=== PATIENT | female | born 1990 | race Caucasian/White ===

== ENCOUNTER 2022-01-09 09:33 | Emergency (ER) | payer SELFPAY ==
--- OUTSIDE RECORDS SUMMARY | 2022-01-09 09:39 | XMS REPORT | Continuity of Care Document ---
:1990 Author Organization [facility] t Address [address] [place] [address] Care Team Providers Name Role Phone Pcp, Patient Does Not Have A Primary Care Physician [phone] BRIJESH GORDON Attending Clinician Unavailable Brijesh Gordon DO Attending Clinician Martha Blake MA Attending Clinician Unavailable CAROL BAUMAN Attending Clinician Unavailable Carol Swann Attending Clinician Carmen BARR Attending Clinician Unavailable Carmen Goodrich Attending Clinician Doctor Unassigned, [place] Attending Clinician Unavailable ALEJO CHUN Attending Clinician Unavailable Alejo Chun MD Attending Clinician Wild Peter RN Attending Clinician Unavailable RAINE REESE Attending Clinician Unavailable Mary Ann GRAY Raine S Attending Clinician ANDRES MORGAN Attending Clinician Unavailable Only, Ang Db Test Attending Clinician Unavailable Key Rodriguez Attending Clinician KEY TRIMBLE Attending Clinician Unavailable LASHONDA VELASCO Attending Clinician Unavailable Lashonda Velasco MD Attending Clinician [phone] Audrey Serrano RN Attending Clinician Unavailable Jenna Montana LVN Attending Clinician RODRIGO XAVIER Attending Clinician Unavailable Saulo Wolf MD Attending Clinician Don Blevins MD Attending Clinician Rodrigo Xavier MD Attending Clinician BAUMANMIKEE Admitting Clinician Unavailable Carmen BARR Admitting Clinician Unavailable BRIJESH GORDON Admitting Clinician Unavailable LASHONDA VELASCO Admitting Clinician Unavailable RODRIGO XAVIER Admitting Clinician Unavailable Morenita TAVAREZ, Rodrigo Rai Admitting Clinician Payers Payer Name Policy Type Policy Number Effective Date Expiration Date [place] [id number] 2021 HEALTHCARE 00:00:00 Problems Condition Condition Condition Status Onset Resolution Last Treating Co mments Source Name Details Category Date Date Treatment Clinician Date UTI UTI Disease Active Univers (urinary (urinary 4-24 ity of tract tract 00:00: [place] infection) infection) 00 In dical Branch Allergies, Adverse Reactions, Alerts Allergy Allergy Status Severity Reaction(s) Onset Inactive Treating Comm ents Source Name Type Date Date Clinician LATEX DRUG Active Rash 2021-0 Univers INGREDI 9-02 ity of 00:00: [place] 00 Medical Branch Latex Propensi Active Rash 2021-0 Univers ty to 9-02 ity of adverse 00:00: [place] reaction 00 Medical s Branch Penicill Propensi Active Anaphylaxis 2021-0 U nivers in ty to 6-27 ity of adverse 00:00: [place] reaction 00 Medical s Branch PENICILL DRUG Active Anaphylaxis 2021-0 Uni vers IN INGREDI 6-27 ity of 00:00: [place] 00 Medical Branch FISH OIL DRUG Active Hives 2021-0 Univers INGREDI 4-24 ity of 00:00: [place] 00 Medical Branch PENICILL Drug Active Anaphylaxis 2021-0 Uni vers INS Class 4-24 ity of 00:00: [place] 00 Medical Branch Penicill Propensi Active Anaphylaxis 2021-0 U nivers ins ty to 4-24 ity of adverse 00:00: [place] reaction 00 Medical s Branch Fish Oil Propensi Active Hives 2021-0 Univer s ty to 4-24 ity of adverse 00:00: [place] reaction 00 Medical s Branch Penicill Propensi Active Anaphylaxis U nivers ins ty to 4-24 ity of adverse 00:00: [place] reaction 00 Medical s Branch Social History Social Habit Start Date Stop Date Quantity Comments Source History SDIA University o f Alcohol Frequency [place] M edical Branch History [facility] University o f Alcohol Std [place] Medical Drinks Branch History [facility] o f Alcohol Binge [place] Medic al Branch Exposure to 2021-12-16 2021-12-26 Not sure University of SARS-CoV-2 00:00:00 15:50:00 [facility] [place] [facility] (event) Branch Tobacco use and 2021-06-04 2021-06-04 Smokeless tobacco Un iversity of exposure 00:00:00 00:00:00 non-user [facility] Alcohol Comment 2021-06-04 2021-06-04 drinks 2x a year Uni versity of 00:00:00 00:00:00 [facility] Sex [birth year] Universit y of 00:00:00 00:00:00 [facility] Smoking Status Start Date Stop Date Source Tobacco smoking consumption Univ ersity of [facility] [place] [facility] unknown Branch Medications Ordered Filled Start Stop Current Ordering Indication Dosage Frequency Signature Comments Components Source Medication Medication Date Date Medication? Clinician (SIG) Name Name ketorolac 2021-02- Yes 15mg 15 mg, Unive rs (TORADOL) 03-0928 Slow IV ity of injection 20:30: 08:29 Push, [place] 15 mg 00 :00 ONCE, 1 Medical dose, On Branch 01/07/22 at 1430, Routine HYDROcodone 2021-02- No 1{tbl} 1 tablet, Univers -acetaminop 16 11-16 Oral, ONCE i ty of hen (NORCO) 02:30: 02:01 NOW, 1 [place] as 10-325 mg 00 :00 dose, On Medica l tablet 1 Tue Branch tablet 12/26/21 at 2030, Routine morpHINE (4 2021-02- No 4mg 4 mg, Slow Univers mg/mL) 02-25 11-15 IV Push, ity of injection 4 23:00: 23:04 ONCE, 1 [place] mg 00 :00 dose, On Medical Tue Branch 12/26/21 at 1700, STAT NaCl 0.9% 2021-02 No 1000mL at 999 Uni vers (NS) bolus 02-25 11-16 mL/hr, ity of infusion 22:45: 00:17 1,000 mL, [place] 1,000 mL 00 :00 IV Medical Infusion, Branch ONCE, 1 dose, On 12/26/21 at 1645, JOSE LUIS ondansetron 2021-02 No 4mg 4 mg, Slow Univers (ZOFRAN 02-25 IV Push, ity of (PF)) 22:00: 22:03 ONCE, 1 [place] injection 4 00 :00 dose, On Medi rancho mg Tue Branch 12/26/21 at 1600, JOSE LUIS ketorolac 2021-02 No 30mg 30 mg, Unive rs (TORADOL) 02-25 Slow IV ity of injection 22:00: 22:04 Push, [place] 30 mg 00 :00 ONCE, 1 Medical dose, On Branch e 12/26/21 at 1600, JOSE LUIS insulin 2021-02 No 8U 8 Units, Unive rs regular 012-03 IV Push, ity of human 04:00: 03:03 ONCE, 1 [place] (HUMULIN R) 00 :00 dose, On Medi rancho injection 8 Sat Branch Units 12/02/21 at 2300, Routine
Indicatio n for insulin: Hyperglyce angel ketorolac 2021-02 No 15mg 15 mg, Unive rs (TORADOL) 012-03 Slow IV ity of injection 03:00: 01:56 Push, [place] 15 mg 00 :00 ONCE, 1 Medical dose, On Branch 12/02/21 at 2200, JOSE LUIS NaCl 0.9% 2021-02 No 1000mL at 999 Uni vers (NS) bolus 0 10-23 mL/hr, ity of infusion 02:45: 03:39 1,000 mL, [place] 1,000 mL 00 :00 IV Medical Infusion, Branch ONCE, 1 dose, On 12/02/21 at 2145, STAT magnesium 2021-02 No 2g 2 g, IV Univ ers sulfate in 0-03 12-23 Piggyback, it y of water 2 02:45: 02:54 Administer [place] gram/50 mL 00 :00 over 60 Medica l (4 %) Minutes, Branch infusion 2 ONCE, 1 g dose, On 12/02/21 at 2145, Routine NaCl 0.9% 2021-02- No 1000mL at 999 Uni vers (NS) bolus 0-23 10-23 mL/hr, ity of infusion 02:00: 03:39 1,000 mL, [place] 1,000 mL 00 :00 IV Medical Infusion, Branch ONCE, 1 dose, On 12/02/21 at 2100, STAT ondansetron 2021-02- No 4mg 4 mg, Slow Univers (ZOFRAN 0-23 10-23 IV Push, ity of (PF)) 02:00: 01:10 ONCE, 1 [place] injection 4 00 :00 dose, On Medi rancho mg Sat Branch 12/02/21 at 2100, JOSE LUIS insulin 2021-02 Yes 30U inject 30 Unive rs glargine,hu 0-22 Units ity of m.rec.anlog 22:42: under the [place] (LANTUS SC) 34 skin 2 Medica l (two) Branch times daily. insulin 2021-02 Yes 30U inject 30 Unive rs glargine,hu 0-22 Units ity of m.rec.anlog 22:42: under the [place] (LANTUS SC) 34 skin 2 Medica l (two) Branch times daily. insulin 2021-02 Yes 30U inject 30 Unive rs glargine,hu 0-22 Units ity of m.rec.anlog 22:42: under the [place] (LANTUS SC) 34 skin 2 Medica l (two) Branch times daily. insulin 2021-02 Yes 30U inject 30 Unive rs glargine,hu 0-22 Units ity of m.rec.anlog 22:42: under the [place] (LANTUS SC) 34 skin 2 Medica l (two) Branch times daily. ondansetron 2021-02 Yes [id number] 8mg Take 1 Univers 8 mg 0-22 tablet by ity of disintegrat 00:00: mouth [place] ing tablet 00 every 8 Medica l (eight) Branch hours as needed for Nausea and Vomiting (N/V). insulin 2021-02 Yes [id number] 30U inject 30 Univers glargine 0-22 Units ity of 100 unit/mL 00:00: under the [place] injection 00 skin in Medical the Branch morning and 30 Units in the evening. ondansetron 2021-02 Yes [id number] 8mg Take 1 Univers 8 mg 0-22 tablet by ity of disintegrat 00:00: mouth [place] ing tablet 00 every 8 Medica l (eight) Branch hours as needed for Nausea and Vomiting (N/V). insulin 2021-02 Yes [id number] 30U inject 30 Univers glargine 0-22 Units ity of 100 unit/mL 00:00: under the [place] injection 00 skin in Medical the Branch morning and 30 Units in the evening. ibuprofen 2021-02 Yes [id number] 600mg Take 1 Univers 600 mg 0-22 tablet by ity of tablet 00:00: mouth [place] 00 every 6 Medical (six) Branch hours as needed for Pain (scale 4-6). ondansetron 2021-02 Yes [id number] 8mg Take 1 Univers 8 mg 0-22 tablet by ity of disintegrat 00:00: mouth [place] ing tablet 00 every 8 Medica l (eight) Branch hours as needed for Nausea and Vomiting (N/V). insulin 2021-02 Yes [id number] 30U inject 30 Univers glargine 0-22 Units ity of 100 unit/mL 00:00: under the [place] injection 00 skin in Medical the Branch morning and 30 Units in the evening. ibuprofen 2021-02 Yes [id number] 600mg Take 1 Univers 600 mg 0-22 tablet by ity of tablet 00:00: mouth [place] 00 every 6 Medical (six) Branch hours as needed for Pain (scale 4-6). ondansetron 2021-02 Yes [id number] 8mg Take 1 Univers 8 mg 0-22 tablet by ity of disintegrat 00:00: mouth [place] ing tablet 00 every 8 Medica l (eight) Branch hours as needed for Nausea and Vomiting (N/V). insulin 2021-02 Yes [id number] 30U inject 30 Univers glargine 0-22 Units ity of 100 unit/mL 00:00: under the [place] injection 00 skin in Medical the Branch morning and 30 Units in the evening. ibuprofen 2022-1 Yes [id number] 600mg Take 1 Univers 600 mg 0-22 tablet by ity of tablet 00:00: mouth [place] 00 every 6 Medical (six) Branch hours as needed for Pain (scale 4-6). clindamycin 2021- No 600mg 600 mg, IV Univers in 5 % 11-08 Piggyback, ity of dextrose 20:15: 20:14 ONCE, 1 [place] (CLEOCIN) 00 :00 dose, On Medica l 600 mg/50 Wed Branch mL IV 11/08/21 at piggyback 1515, RTU 600 mg Administer over 30 Minutes, 50 mL
R andres for Anti-Infec tive: Documented Infection< br>Documen snow Infection Site: Skin / Soft Tissue
Duration of Therapy: 7 days
Re stricted use approved by: ED PROVIDER FENTanyl PF 2021- No 50ug 50 mcg, Un edgar (SUBLIMAZE 11-08 Slow IV ity o f (PF)) 19:45: 18:54 Push, [place] injection 00 :00 ONCE, 1 Medical 50 mcg dose, On Branch 11/08/21 at 1445, Routine lidocaine 2021- No 10mL 10 mL, Unive rs 1% (PF) 11-08 Infiltrati ity o f (XYLOCAINE) 17:45: 17:45 on, ONCE, [place] injection 00 :00 1 dose, On Medi rancho 10 mL Wed Branch 11/08/21 at 1245, JOSE LUIS NaCl 0.9% 2021- No 1000mL at 999 Uni vers (NS) bolus 11-08 mL/hr, ity of infusion 17:45: 18:57 1,000 mL, [place] 1,000 mL 00 :00 IV Medical Infusion, Branch ONCE, 1 dose, On Sat11/08/21 at 1245, JOSE LUIS ondansetron 2021- No 4mg 4 mg, Slow Univers (ZOFRAN 11-08 IV Push, ity of (PF)) 17:00: 17:17 ONCE, 1 [place] injection 4 00 :00 dose, On Medi rancho mg Wed Branch 11/08/21 at 1200, JOSE LUIS morpHINE (4 2021- No 4mg 4 mg, Slow Univers mg/mL) 11-08 IV Push, ity of injection 4 17:00: 17:17 ONCE, 1 [place] mg 00 :00 dose, On Medical Wed Branch 11/08/21 at 1200, STAT ketorolac No 30mg 30 mg, Unive rs (TORADOL) 11-08 Slow IV ity of injection 17:00: 17:17 Push, [place] 30 mg 00 :00 ONCE, 1 Medical dose, On Branch Sat11/08/21 at 1200, JOSE LUIS clindamycin 2021- Yes [id number] 450mg Take 3 Univers 150 mg 11-08 capsules ity of capsule 00:00: 04:59 by mouth [place] 00 :00 in the Medical morning Branch and 3 capsules at noon and 3 capsules in the evening. Do all this for 7 days. metoclopram No 10mg 10 mg, Uni vers crispin HCl 10-17 Slow IV ity of (REGLAN) 00:30: 00:33 Push, [place] injection 00 :00 ONCE, 1 Medical 10 mg dose, On Branch 10/16/21 at 1930, JOSE LUIS NaCl 0.9% 2021- No 2000mL at 999 Uni vers (NS) bolus 10-17 mL/hr, ity of infusion 00:15: 01:00 2,000 mL, [place] 2,000 mL 00 :00 IV Medical Infusion, Branch ONCE, 1 dose, On Sat10/16/21 at 1915, STAT NaCl 0.9% No 1000mL at 999 Uni vers (NS) bolus 10-13 mL/hr, ity of infusion 19:00: 18:40 1,000 mL, [place] 1,000 mL 00 :00 IV Medical Infusion, Branch ONCE, 1 dose, On Sat10/13/21 at 1400, STAT ondansetron No 4mg 4 mg, Slow Univers (ZOFRAN 10-13 IV Push, ity of (PF)) 18:00: 17:47 ONCE, 1 [place] injection 4 00 :00 dose, On Medi rancho mg Sat10/13/21 Branch at 1300, JOSE LUIS ondansetron 2022-0 Yes [id number] 4mg Take 1 Univers 4 mg 9-02 tablet by ity of disintegrat 00:00: mouth [place] ing tablet 00 every 8 Medica l (eight) Branch hours as needed for Nausea and Vomiting (N/V). ondansetron 2022-0 Yes [id number] 4mg Take 1 Univers 4 mg 9-02 tablet by ity of disintegrat 00:00: mouth [place] ing tablet 00 every 8 Medica l (eight) Branch hours as needed for Nausea and Vomiting (N/V). ondansetron 2022-0 Yes [id number] 4mg Take 1 Univers 4 mg 9-02 tablet by ity of disintegrat 00:00: mouth [place] ing tablet 00 every 8 Medica l (eight) Branch hours as needed for Nausea and Vomiting (N/V). ondansetron 2022-0 Yes [id number] 4mg Take 1 Univers 4 mg 9-02 tablet by ity of disintegrat 00:00: mouth [place] ing tablet 00 every 8 Medica l (eight) Branch hours as needed for Nausea and Vomiting (N/V). ondansetron 2-0 Yes [id number] 4mg Take 1 Univers 4 mg 9-02 tablet by ity of disintegrat 00:00: mouth [place] ing tablet 00 every 8 Medica l (eight) Branch hours as needed for Nausea and Vomiting (N/V). ondansetron 2-0 Yes [id number] 4mg Take 1 Univers 4 mg 9-02 tablet by ity of disintegrat 00:00: mouth [place] ing tablet 00 every 8 Medica l (eight) Branch hours as needed for Nausea and Vomiting (N/V). ondansetron 2022-0 Yes [id number] 4mg Take 1 Univers 4 mg 9-02 tablet by ity of disintegrat 00:00: mouth [place] ing tablet 00 every 8 Medica l (eight) Branch hours as needed for Nausea and Vomiting (N/V). ondansetron 2022-0 Yes [id number] 4mg Take 1 Univers 4 mg 9-02 tablet by ity of disintegrat 00:00: mouth [place] ing tablet 00 every 8 Medica l (eight) Branch hours as needed for Nausea and Vomiting (N/V). ondansetron 2022-0 Yes [id number] 4mg Take 1 Univers 4 mg 9-02 tablet by ity of disintegrat 00:00: mouth [place] ing tablet 00 every 8 Medica l (eight) Branch hours as needed for Nausea and Vomiting (N/V). NaCl 0.9% No 1000mL at 999 Uni vers (NS) bolus 09-15 mL/hr, ity of infusion 13:30: 14:09 1,000 mL, [place] 1,000 mL 00 :00 IV Medical Piggyback, Branch ONCE, 1 dose, On Sat09/15/21 at 0830, STAT dexamethaso 2021- No 10mg 10 mg, Uni vers ne 09-15 Oral, ity of (DECADRON 13:15: 12:15 ONCE, 1 [place] PHOSPHATE) 00 :00 dose, On Medic al injection Sat09/15/21 Bran ch 10 mg at 0815, Routine ondansetron 2021- No 4mg 4 mg, Slow Univers (ZOFRAN 09-15 IV Push, ity of (PF)) 12:30: 12:24 ONCE, 1 [place] injection 4 00 :00 dose, On Medi rancho mg 09/15/21 Branch at 0730, JOSE LUIS ibuprofen 2021- No 600mg 600 mg, Uni vers (IBU) 09-15 Oral, ity of tablet 600 12:15: 12:15 ONCE, 1 [place] mg 00 :00 dose, On Medical 09/15/21 Branch at 0715, JOSE LUIS benzonatate 2021- No 100mg 100 mg, U nivers (TESSALON 09-15 Oral, ity of PERLES) 12:15: 12:15 ONCE, 1 [place] capsule 100 00 :00 dose, On Medi rancho mg Sat09/15/21 Branch at 0715, JOSE LUIS benzonatate 2021-0 Yes [id number] 100mg Take 1 Univers 100 mg 8-05 capsule by ity of capsule 00:00: mouth 3 [place] 00 (three) Medical times Branch daily as needed for Cough. ondansetron Yes [id number] 4mg Take 1 Univers 4 mg 8-05 tablet by ity of disintegrat 00:00: mouth [place] ing tablet 00 every 8 Medica l (eight) Branch hours as needed for Nausea and Vomiting (N/V). Blood-Gluco 2022-0 Yes [id number] Use as Univers se Meter 8-05 directed ity of (BLOOD 00:00: [place] GLUCOSE 00 Medical MONITORING) Branch Kit benzonatate 2022-0 Yes [id number] 100mg Take 1 Univers 100 mg 8-05 capsule by ity of capsule 00:00: mouth 3 [place] 00 (three) Medical times Branch daily as needed for Cough. Blood-Gluco 2022-0 Yes [id number] Use as Univers se Meter 8-05 directed ity of (BLOOD 00:00: [place] GLUCOSE 00 Medical MONITORING) Branch Kit benzonatate 2-0 Yes [id number] 100mg Take 1 Univers 100 mg 8-05 capsule by ity of capsule 00:00: mouth 3 [place] 00 (three) Medical times Branch daily as needed for Cough. Blood-Gluco 2022-0 Yes [id number] Use as Univers se Meter 8-05 directed ity of (BLOOD 00:00: [place] GLUCOSE 00 Medical MONITORING) Branch Kit benzonatate 2-0 Yes [id number] 100mg Take 1 Univers 100 mg 8-05 capsule by ity of capsule 00:00: mouth 3 (three) Medical times Branch daily as needed for Cough. Blood-Gluco 2022-0 Yes [id number] Use as Univers se Meter 8-05 directed ity of (BLOOD 00:00: [place] GLUCOSE 00 Medical MONITORING) Branch Kit benzonatate 2-0 Yes [id number] 100mg Take 1 Univers 100 mg 8-05 capsule by ity of capsule 00:00: mouth 3 (three) Medical times Branch daily as needed for Cough. Blood-Gluco 2022-0 Yes [id number] Use as Univers se Meter 8-05 directed ity of (BLOOD 00:00: [place] GLUCOSE 00 Medical MONITORING) Branch Kit benzonatate 2022-0 Yes [id number] 100mg Take 1 Univers 100 mg 8-05 capsule by ity of capsule 00:00: mouth 3 [place] 00 (three) Medical times Branch daily as needed for Cough. Blood-Gluco 2022-0 Yes [id number] Use as Univers se Meter 8-05 directed ity of (BLOOD 00:00: [place] GLUCOSE 00 Medical MONITORING) Branch Kit benzonatate 2022-0 Yes [id number] 100mg Take 1 Univers 100 mg 8-05 capsule by ity of capsule 00:00: mouth 3 (three) Medical times Branch daily as needed for Cough. Blood-Gluco 2022-0 Yes [id number] Use as Univers se Meter 8-05 directed ity of (BLOOD 00:00: [place] GLUCOSE 00 Medical MONITORING) Branch Kit benzonatate 2-0 Yes [id number] 100mg Take 1 Univers 100 mg 8-05 capsule by ity of capsule 00:00: mouth 3 (three) Medical times Branch daily as needed for Cough. Blood-Gluco 2-0 Yes [id number] Use as Univers se Meter 8-05 directed ity of (BLOOD 00:00: [place] GLUCOSE 00 Medical MONITORING) Branch Kit benzonatate 2-0 Yes [id number] 100mg Take 1 Univers 100 mg 8-05 capsule by ity of capsule 00:00: mouth 3 (three) Medical times Branch daily as needed for Cough. Blood-Gluco 2-0 Yes [id number] Use as Univers se Meter 8-05 directed ity of (BLOOD 00:00: [place] GLUCOSE 00 Medical MONITORING) Branch Kit benzonatate 2-0 Yes [id number] 100mg Take 1 Univers 100 mg 8-05 capsule by ity of capsule 00:00: mouth 3 (three) Medical times Branch daily as needed for Cough. Blood-Gluco 2-0 Yes [id number] Use as Univers se Meter 8-05 directed ity of (BLOOD 00:00: [place] GLUCOSE 00 Medical MONITORING) Branch Kit ondansetron 2-0 2022- No [id number] 4mg Take 1 Univers 4 mg 8-05 09-02 tablet by ity of disintegrat 00:00: 00:00 mouth [place] ing tablet 00 :00 every 8 Medica l (eight) Branch hours as needed for Nausea and Vomiting (N/V). ondansetron 2022-0 2022- No [id number] 4mg Take 1 Univers 4 mg 8-05 08-05 tablet by ity of disintegrat 00:00: 00:00 mouth [place] ing tablet 00 :00 every 8 Medica l (eight) Branch hours as needed for Nausea and Vomiting (N/V). benzonatate 2022-0 2022- No [id number] 100mg Take 1 Univers 100 mg 8-05 08-05 capsule by ity of capsule 00:00: 00:00 mouth 3 [place] 00 :00 (three) Medical times [place] daily as needed for Cough. QUEtiapine 2022-0 Yes TAKE 1 Unive rs 100 mg 7-12 TABLET BY ity of tablet 00:00: [facility] 00 EVERY Medical NIGHT AT Branch BEDTIME FOR MOOD QUEtiapine 2022-0 Yes TAKE 1 Unive rs 100 mg 7-12 TABLET BY ity of tablet 00:00: [facility] 00 EVERY Medical NIGHT AT Branch BEDTIME FOR MOOD QUEtiapine 2022-0 Yes TAKE 1 Unive rs 100 mg 7-12 TABLET BY ity of tablet 00:00: MOUTH [place] 00 EVERY Medical NIGHT AT Branch BEDTIME FOR MOOD QUEtiapine 2022-0 Yes TAKE 1 Unive rs 100 mg 7-12 TABLET BY ity of tablet 00:00: [facility] 00 EVERY Medical NIGHT AT Branch BEDTIME FOR MOOD QUEtiapine 2022-0 Yes TAKE 1 Unive rs 100 mg 7-12 TABLET BY ity of tablet 00:00: [facility] EVERY Medical NIGHT AT [place] BEDTIME FOR MOOD QUEtiapine 2022-0 Yes TAKE 1 Unive rs 100 mg 7-12 TABLET BY ity of tablet 00:00: [facility] 00 EVERY Medical NIGHT AT Branch BEDTIME FOR MOOD QUEtiapine 2022-0 Yes TAKE 1 Unive rs 100 mg 7-12 TABLET BY ity of tablet 00:00: [facility] 00 EVERY Medical NIGHT AT Branch BEDTIME FOR MOOD QUEtiapine 2022-0 Yes TAKE 1 Unive rs 100 mg 7-12 TABLET BY ity of tablet 00:00: [facility] EVERY Medical NIGHT AT Branch BEDTIME FOR MOOD QUEtiapine 2022-0 Yes TAKE 1 Unive rs 100 mg 7-12 TABLET BY ity of tablet 00:00: MOUTH 00 EVERY Medical NIGHT AT Branch BEDTIME FOR MOOD QUEtiapine 2022-0 Yes TAKE 1 Unive rs 100 mg 7-12 TABLET BY ity of tablet 00:00: [facility] 00 EVERY Medical NIGHT AT Branch BEDTIME FOR MOOD QUEtiapine 2022-0 Yes TAKE 1 Unive rs 100 mg 7-12 TABLET BY ity of tablet 00:00: [facility] 00 EVERY Medical NIGHT AT Branch BEDTIME FOR MOOD QUEtiapine 2022-0 Yes TAKE 1 Unive rs 100 mg 7-12 TABLET BY ity of tablet 00:00: [facility] 00 EVERY Medical NIGHT AT Branch BEDTIME FOR MOOD ibuprofen 2022-0 Yes [id number] 800mg Take 1 Univers 800 mg 6-27 tablet by ity of tablet 00:00: mouth [place] 00 every 8 Medical (eight) Branch hours as needed for Pain (scale 4-6). ibuprofen 2022-0 Yes [id number] 800mg Take 1 Univers 800 mg 6-27 tablet by ity of tablet 00:00: mouth [place] 00 every 8 Medical (eight) Branch hours as needed for Pain (scale 4-6). ibuprofen 2022-0 Yes [id number] 800mg Take 1 Univers 800 mg 6-27 tablet by ity of tablet 00:00: mouth [place] 00 every 8 Medical (eight) Branch hours as needed for Pain (scale 4-6). ibuprofen 2022-0 Yes [id number] 800mg Take 1 Univers 800 mg 6-27 tablet by ity of tablet 00:00: mouth [place] 00 every 8 Medical (eight) Branch hours as needed for Pain (scale 4-6). ibuprofen 2022-0 Yes [id number] 800mg Take 1 Univers 800 mg 6-27 tablet by ity of tablet 00:00: mouth [place] 00 every 8 Medical (eight) Branch hours as needed for Pain (scale 4-6). ibuprofen 2022-0 Yes [id number] 800mg Take 1 Univers 800 mg 6-27 tablet by ity of tablet 00:00: mouth [place] 00 every 8 Medical (eight) Branch hours as needed for Pain (scale 4-6). ibuprofen 2022-0 Yes [id number] 800mg Take 1 Univers 800 mg 6-27 tablet by ity of tablet 00:00: mouth [place] 00 every 8 Medical (eight) Branch hours as needed for Pain (scale 4-6). ibuprofen 2022-0 Yes [id number] 800mg Take 1 Univers 800 mg 6-27 tablet by ity of tablet 00:00: mouth [place] 00 every 8 Medical (eight) Branch hours as needed for Pain (scale 4-6). ibuprofen 2022-0 Yes [id number] 800mg Take 1 Univers 800 mg 6-27 tablet by ity of tablet 00:00: mouth [place] 00 every 8 Medical (eight) Branch hours as needed for Pain (scale 4-6). ibuprofen 2022-0 Yes [id number] 800mg Take 1 Univers 800 mg 6-27 tablet by ity of tablet 00:00: mouth [place] 00 every 8 Medical (eight) Branch hours as needed for Pain (scale 4-6). ibuprofen 202-0 Yes [id number] 800mg Take 1 Univers 800 mg 6-27 tablet by ity of tablet 00:00: mouth [place] 00 every 8 Medical (eight) Branch hours as needed for Pain (scale 4-6). ibuprofen 202-0 Yes [id number] 800mg Take 1 Univers 800 mg 6-27 tablet by ity of tablet 00:00: mouth [place] 00 every 8 Medical (eight) Branch hours as needed for Pain (scale 4-6). insulin 0 Yes inject Univers aspart 4-25 under the ity of prot/insuln 00:30: skin 3 [place] asp 14 (three) Medical (NOVOLOG times Branch MIX 70-30 daily U-100 before INSULN SC) meals. insulin 2021-0 Yes 30U inject 30 Unive rs glargine,hu 4-25 Units ity of m.rec.anlog 00:30: under the [place] (LANTUS SC) 14 skin 2 Medica l (two) Branch times daily. zolpidem 2021-0 Yes 10mg Take 10 mg Uni vers (AMBIEN) 10 4-25 by mouth ity of mg tablet 00:30: at bedtime [place] 14 as needed Medical for Branch Insomnia. insulin 2021-0 Yes inject Univers aspart 4-25 under the ity of prot/insuln 00:30: skin 3 [place] asp 14 (three) Medical (NOVOLOG times Branch MIX 70-30 daily U-100 before INSULN SC) meals. insulin 2021-0 Yes 30U inject 30 Unive rs glargine,hu 4-25 Units ity of m.rec.anlog 00:30: under the [place] (LANTUS SC) 14 skin 2 Medica l (two) Branch times daily. zolpidem 2022-0 Yes 10mg Take 10 mg Uni vers (AMBIEN) 10 4-25 by mouth ity of mg tablet 00:30: at bedtime [place] 14 as needed Medical for Branch Insomnia. insulin 2021-0 Yes inject Univers aspart 4-25 under the ity of prot/insuln 00:30: skin 3 [place] asp 14 (three) Medical (NOVOLOG times Branch MIX 70-30 daily U-100 before INSULN SC) meals. insulin 2021-0 Yes 30U inject 30 Unive rs glargine,hu 4-25 Units ity of m.rec.anlog 00:30: [place] ([place] 14 skin 2 Medica l (two) Branch times daily. zolpidem 2021-0 Yes 10mg Take 10 mg Uni vers (AMBIEN) 10 4-25 by mouth ity of mg tablet 00:30: [place] 14 [place] needed Medical for Branch Insomnia. insulin 2021-0 Yes inject Univers aspart 4-25 under the [place] of prot/insuln [place]:30[place] (three) Medical (NOVOLOG times Branch MIX 70-30 daily U-100 before INSULN SC) meals. insulin 2021-0 Yes 30U inject 30 Unive rs glargine,hu 4-25 Units ity of m.rec.anlog 00:30: under the [place] ([place] 14 skin 2 Medica l (two) Branch times daily. zolpidem 2021-0 Yes 10mg Take 10 mg Uni vers (AMBIEN) 10 4-25 by mouth ity of mg tablet 00:30: [place] 14 as needed Medical for Branch Insomnia. insulin 2021-0 Yes inject Univers aspart 4-25 under the [place] of prot/insuln 00:30: [place] 3 [place] (three) Medical (NOVOLOG times Branch MIX 70-30 daily U-100 before INSULN SC) meals. insulin 2021-0 Yes 30U inject 30 Unive rs glargine,hu 4-25 Units ity of m.rec.anlog 00:30: under the [place] ([place] 14 skin 2 Medica l (two) Branch times daily. zolpidem 2-0 Yes 10mg Take 10 mg Uni vers (AMBIEN) 10 4-25 by mouth ity of mg tablet 00:30: [place] 14 as needed Medical for [facility] Insomnia. insulin 2021-0 Yes inject Univers aspart 4-25 under the [place] of prot/insuln 00:30: [place] 3 [place] (three) Medical (NOVOLOG times Branch MIX 70-30 daily U-100 before INSULN SC) meals. insulin 2021-0 Yes 30U inject 30 Unive rs glargine,hu 4-25 Units ity of m.rec.anlog 00:30: under the [place] ([place] 14 skin 2 Medica l (two) Branch times daily. zolpidem 2021-0 Yes 10mg Take 10 mg Uni vers (AMBIEN) 10 4-25 by mouth ity of mg tablet 00:30: [place] 14 as needed Medical for Branch Insomnia. insulin 2021-0 Yes inject Univers aspart 4-25 under the [place] of prot/insuln 00:30: [place] 3 [place] (three) Medical (NOVOLOG times Branch MIX 70-30 daily U-100 before INSULN SC) meals. insulin 2021-0 Yes 30U inject 30 Unive rs glargine,hu 4-25 Units ity of m.rec.anlog 00:30: under the [place] ([place] 14 skin 2 Medica l (two) Branch times daily. zolpidem 2021-0 Yes 10mg Take 10 mg Uni vers (AMBIEN) 10 4-25 by mouth ity of mg tablet 00:30: [place] 14 as needed Medical for Branch Insomnia. insulin 2021-0 Yes inject Univers aspart 4-25 under the it[place] of prot/insuln 00:30: skin 3 [place] (three) Medical (NOVOLOG times Branch MIX 70-30 daily U-100 before INSULN SC) meals. insulin 2021-0 Yes 30U inject 30 Unive rs glargine,hu 4-25 Units ity of m.rec.anlog 00:30: under the [place] ([place] 14 skin 2 Medica l (two) Branch times daily. zolpidem 2-0 Yes 10mg Take 10 mg Uni vers (AMBIEN) 10 4-25 by mouth ity of mg tablet 00:30: [place] 14 as needed Medical for Branch Insomnia. insulin 2021-0 Yes inject Univers aspart 4-25 under the it[place] of prot/insuln 00:30: [place] 3 [place] (three) Medical (NOVOLOG times Branch MIX 70-30 daily U-100 before INSULN SC) meals. zolpidem Yes 10mg Take 10 mg Uni vers (AMBIEN) 10 4-25 by mouth ity of mg tablet 00:30: [place]time [place] 14 as needed Medical for Branch Insomnia. insulin Yes inject Univers aspart 4-25 under the it[place] of prot/insuln 00:30: skin 3 [place] (three) Medical (NOVOLOG times Branch MIX 70-30 daily U-100 before INSULN SC) meals. zolpidem Yes 10mg Take 10 mg Uni vers (AMBIEN) 10 4-25 by mouth ity of mg tablet 00:30: [place] 14 as needed Medical for Branch Insomnia. insulin Yes inject Univers aspart 4-25 under the it[place] of prot/insuln 00:30: skin 3 [place] (three) Medical (NOVOLOG times Branch MIX 70-30 daily U-100 before INSULN SC) meals. zolpidem Yes 10mg Take 10 mg Uni vers (AMBIEN) 10 4-25 by mouth ity of mg tablet 00:30: [place]time [place] 14 as needed Medical for Branch Insomnia. insulin Yes inject Univers aspart 4-25 under the it[place] of prot/insuln 00:30: skin 3 [place] (three) Medical (NOVOLOG times Branch MIX 70-30 daily U-100 before INSULN SC) meals. zolpidem Yes 10mg Take 10 mg Uni vers (AMBIEN) 10 4-25 by mouth ity of mg tablet 00:30: [place] 14 as needed Medical for Branch Insomnia. Vital Signs Vital Name Observation Time Observation Value Comments Source Systolic blood 2022-01-07 18:18:00 129 mm[Hg] [facility] Diastolic blood 2022-01-07 18:18:00 105 mm[Hg] [facility] Heart rate 2022-01-07 18:18:00 127 /min [facility] Body temperature 2022-01-07 18:18:00 37.17 [place] [facility] Respiratory rate 2022-01-07 18:18:00 16 /min [facility] [place] [facility] Body height 2022-01-07 18:18:00 165.1 cm [facility] [place] [facility] Body weight 2022-01-07 18:18:00 84.823 kg [facility] [place] [facility] BMI 2022-01-07 18:18:00 31.12 kg/m2 [facility] [place] [facility] Oxygen saturation in 2022-01-07 18:18:00 96 /min University of Arterial blood by [place] [facility] Pulse oximetry Branch Systolic blood 2021-12-26 21:51:00 140 mm[Hg] Univer sity of pressure [place] [facility] Diastolic blood 2021-12-26 21:51:00 107 mm[Hg] Unive rsity of [facility] [place] [facility] Heart rate 2021-12-26 21:51:00 108 /min [facility] [place] [facility] Body temperature 2021-12-26 21:51:00 36.56 [place] [facility] [place] [facility] Respiratory rate 2021-12-26 21:51:00 18 /min [facility] [place] [facility] Body height 2021-12-26 21:51:00 165.1 cm [facility] [place] [facility] Body weight 2021-12-26 21:51:00 86.183 kg [facility] [place] [facility] BMI 2021-12-26 21:51:00 31.62 kg/m2 [facility] [place] [facility] Oxygen saturation in 2021-12-26 21:51:00 96 /min University of Arterial blood by [place] [facility] Pulse oximetry Branch Systolic blood 2021-12-03 03:00:00 126 mm[Hg] Univer sity of [facility] [place] [facility] Diastolic blood 2021-12-03 03:00:00 82 mm[Hg] Unive rsity of [facility] [place] [facility] Heart rate 2021-12-03 03:00:00 110 /min [facility] [place] [facility] Respiratory rate 2021-12-03 03:00:00 20 /min [facility] [place] [facility] Oxygen saturation in 2021-12-03 03:00:00 97 /min University of Arterial blood by [place] [facility] Pulse oximetry Branch Body temperature 2021-12-03 00:52:00 37.22 [place] [facility] [place] [facility] Body height 2021-12-03 00:52:00 165.1 cm [facility] [place] [facility] Body weight 2021-12-03 00:52:00 86.183 kg [facility] [place] [facility] BMI 2021-12-03 00:52:00 31.62 kg/m2 [facility] [place] [facility] Systolic blood 2021-11-08 20:00:00 138 mm[Hg] Univer sity [facility] [place] [facility] Diastolic blood 2021-11-08 20:00:00 95 mm[Hg] Unive rsity of [facility] [place] [facility] Heart rate 2021-11-08 20:00:00 96 /min [facility] [place] [facility] Body temperature 2021-11-08 20:00:00 36.39 [place] [facility] [place] [facility] Respiratory rate 2021-11-08 20:00:00 16 /min [facility] [place] [facility] Oxygen saturation in 2021-11-08 20:00:00 95 /min University of Arterial blood by [facility] Pulse oximetry Branch Body height 2021-11-08 15:54:00 165.1 cm [facility] [place] [facility] Body weight 2021-11-08 15:54:00 86.183 kg [facility] [place] [facility] BMI 2021-11-08 15:54:00 31.62 kg/m2 [facility] [place] [facility] Systolic blood 2021-10-16 23:46:35 124 mm[Hg] Univer sity [facility] [place] [facility] Diastolic blood 2021-10-16 23:46:35 97 mm[Hg] Unive rsity of [facility] [place] [facility] Heart rate 2021-10-16 23:46:35 118 /min [facility] [place] [facility] Body temperature 2021-10-16 23:46:35 36.72 [place] [facility] [place] [facility] Respiratory rate 2021-10-16 23:46:35 20 /min [facility] [place] [facility] Body height 2021-10-16 23:42:00 165.1 cm [facility] [place] [facility] Body weight 2021-10-16 23:42:00 86.183 kg [facility] [place] [facility] BMI 2021-10-16 23:42:00 31.62 kg/m2 [facility] [place] [facility] Oxygen saturation in 2021-10-16 23:42:00 98 /min University of Arterial blood by [facility] Pulse oximetry Branch Systolic blood 2021-10-13 20:00:43 135 mm[Hg] Univer sity of [facility] [place] [facility] Diastolic blood 2021-10-13 20:00:43 100 mm[Hg] Unive rsity of [facility] [place] [facility] Heart rate 2021-10-13 20:00:43 92 /min [facility] [place] [facility] Respiratory rate 2021-10-13 20:00:43 16 /min [facility] [place] [facility] Oxygen saturation in 2021-10-13 20:00:43 99 /min University of Arterial blood by [facility] Pulse oximetry Branch Body temperature 2021-10-13 17:22:00 36.72 [place] [facility] [place] [facility] Body height 2021-10-13 17:22:00 165.1 cm [facility] [place] [facility] Body weight 2021-10-13 17:22:00 86.183 kg [facility] [place] [facility] BMI 2021-10-13 17:22:00 31.62 kg/m2 [facility] [place] [facility] Systolic blood 2021-09-15 13:14:00 136 mm[Hg] Univer sity [facility] [place] [facility] Diastolic blood 2021-09-15 13:14:00 91 mm[Hg] Unive rsity of [facility] [place] [facility] Heart rate 2021-09-15 13:14:00 86 /min [facility] [place] [facility] Respiratory rate 2021-09-15 13:14:00 16 /min [facility] [place] [facility] Oxygen saturation in 2021-09-15 13:14:00 97 /min University of Arterial blood by [facility] Pulse oximetry Branch Body temperature 2021-09-15 11:48:00 36.61 [place] [facility] [place] [facility] Body height 2021-09-15 11:46:00 160 cm [facility] [place] [facility] Body weight 2021-09-15 11:46:00 90.719 kg [facility] [place] [facility] BMI 2021-09-15 11:46:00 35.43 kg/m2 [facility] [place] [facility] Systolic blood 2021-09-12 15:05:00 116 mm[Hg] Univer sity [facility] [place] [facility] Diastolic blood 2021-09-12 15:05:00 80 mm[Hg] Unive rsity of pressure [facility] Heart rate 2021-09-12 15:05:00 106 /min [facility] Body temperature 2021-09-12 15:05:00 37.11 [place] [facility] Respiratory rate 2021-09-12 15:05:00 16 /min [facility] Body height 2021-09-12 15:05:00 160 cm [facility] Body weight 2021-09-12 15:05:00 87 kg [facility] BMI 2021-09-12 15:05:00 33.98 kg/m2 [facility] Oxygen saturation in 2021-09-12 15:05:00 98 /min [facility] Arterial blood by [facility] Pulse oximetry [place] Procedures Procedure Date / Time Performed Performing Clinician [facility] e COMP. METABOLIC PANEL 2022-01-07 19:06:[address] [facility] ([id number]) [facility] URINALYSIS 2022-01-07 19:06:00 Gordon, [facility] o f [facility] RAPID INFLUENZA A/B 2022-01-07 19:06:00 GordonBrijesh mcfarland [facility] LACTIC ACID WHOLE 2022-01-07 19:06:00 Gordon, [facility] BLOOD [facility] CONSENT/REFUSAL FOR 2022-01-07 18:12:45 Doctor Unassigned, No [facility] DI[facility] AND Name Medical Branch TREATMENT CT ABDOMEN PELVIS WO 2021-12-26 22:47:51 Carol Bauman [facility] POCT TEST 2021-12-26 22:05:00 Carol Bauman [facility] COMP. METABOLIC PANEL 2021-12-26 22:01:00 Carol Bauman [facility] ([id number]) [facility] CBC WITH DIFF 2021-12-26 22:01:[address] [facility] URINALYSIS 2021-12-26 22:01:[address] [facility] CONSENT/REFUSAL FOR 2021-12-26 21:14:06 Doctor Unassigned, No [facility] DIAG[facility]IS AND Name Medical Branch TREATMENT POCT GLUCOSE 2021-12-03 03:36:00 Carmen Barr [facility] (AUTOMATED) Medical Branch POCT GLUCOSE(AGE 2021-12-03 02:59:00 Carmen Barr [facility] >30DAYS) Medical Branch POCT GLUCOSE 2021-12-03 02:58:00 Carmen Barr [facility] (AUTOMATED) [facility] XR CHEST 1 VW 2021-12-03 02:10:00 Carmen Barr [facility] D-DIMER 2021-12-03 01:49:00 Carmen Barr [facility] AC PANEL 21 + LACTIC 2021-12-03 01:06:00 Carmen Barr [facility] ACID Medical Branch LIPASE 2021-12-03 01:04:00 Carmen Barr [facility] MAGNESIUM 2021-12-03 01:04:00 Carmen Barr [facility] TROPONIN I 2021-12-03 01:04:00 Carmen Barr [facility] COMP. METABOLIC PANEL 2021-12-03 01:04:[address] [facility] ([id number]) Medical Branch CBC WITH DIFF 2021-12-03 01:04:00 Carmen Barr [facility] URINALYSIS 2021-12-03 01:04:00 Carmen Brar [facility] POCT GLUCOSE(AGE 2021-12-03 01:03:00 Carmen Barr [facility] >30DAYS) Medical Branch POCT GLUCOSE 2021-12-03 01:00:00 Carmen Barr [facility] (AUTOMATED) [facility] CONSENT/REFUSAL FOR 2021-12-03 00:38:22 Doctor [facility], [facility] Name Medical Branch TREATMENT COMP. METABOLIC PANEL 2021-11-08 19:42:00 Carol Bauman [facility] ([id number]) Medical Branch CBC WITH DIFF 2021-11-08 17:14:00 [facility] URINALYSIS 2021-11-08 17:14:[address] [facility] POCT TEST 2021-11-08 17:13:00 Carol Bauman [facility] CONSENT/REFUSAL FOR 2021-11-08 15:40:23 Doctor Unassigned, No [facility] DIAGNOSIS AND Name [facility] TREATMENT COVID-19 (ID NOW RAPID 2021-10-17 00:21:00 Alejo Chun [facility] TESTING) Medical Branch POCT TEST 2021-10-17 00:17:00 Alejo Chun [facility] LIPASE 2021-10-17 00:13:00 Alejo Chun [facility] HEPATIC FUNCTION PANEL 2021-10-17 00:13:00 Alejo Chun [facility] ([id number]) Medical [place] (ALB,T.PRO,BILI T,BU/BC,ALT,AST,ALK PHOS) BASIC METABOLIC PANEL 2021-10-17 00:13:00 Alejo Chun [facility] (NA, K, CL, CO2, Medical Branch GLUCOSE, BUN, CREATININE, CA) CBC WITH DIFF 2021-10-17 00:13:00 Alejo Chun [facility] URINALYSIS 2021-10-17 00:13:00 Alejo Chun [facility] NOTICE OF PRIVACY 2021-10-16 23:40:19 Doctor Unassigned, No [facility] PRACTICES [facility] CONSENT/REFUSAL FOR 2021-10-16 23:38:52 Doctor Unassigned, No Un [facility] DIAGNOSIS AND Name [facility] TREATMENT URINALYSIS 2021-10-13 18:40:00 Raine Reese [facility] COMP. METABOLIC PANEL 2021-10-13 17:48:[address] [facility] ([id number]) Medical Branch CBC WITH DIFF 2021-10-13 17:48:00 Raine Reese [facility] POCT GLUCOSE 2021-10-13 17:37:00 Raine Reese [facility] (AUTOMATED) [facility] CONSENT/REFUSAL FOR 2021-10-13 17:16:22 Doctor Unassigned, No [facility] DIAGNOSIS AND Name Medical Branch TREATMENT VBG+VCOOX+NA+K+GLU+CA2 2021-09-15 12:39:00 Brijesh Gordon [facility] + [facility] URINALYSIS 2021-09-15 12:36:00 Singer [facility] RAPID STREP SCREEN FOR 2021-09-15 12:31:00 Singer Brijesh [facility] GROUP A [facility] RAPID INFLUENZA A/B 2021-09-15 12:31:00 Brijesh Gordon [facility] COVID-19 (ID NOW RAPID 2021-09-15 12:31:00 Singer Brijesh [facility] TESTING) Medical [place] COMP. METABOLIC PANEL 2021-09-15 12:27:00 Singer [facility] ([id number]) [facility] CBC WITH DIFF 2021-09-15 12:27:00 Singer [facility] POCT GLUCOSE 2021-09-15 11:54:00 Doctor Unassigned, No [facility] (AUTOMATED) Name [facility] CONSENT/REFUSAL FOR 2021-09-15 11:41:54 Doctor Unassigned, No [facility] DIAGNOSIS AND Name [facility] TREATMENT POCT SARS-COV-2 2021-09-12 15:17:00 Key Trimble [facility] ANTIGEN (BINAX NOW) Medical Bran ch Encounters Start End Encounter Admission Attending Care Care Encounter Source Date/Time Date/Time Type Type Clinicians Facility Department ID 2022-01-07 2022-01-07 Emergency X SINGER [facility] ERT [id number] Univers 12:21:00 14:08:00 BRIJESH gardner [facility] 2022-01-07 2022-01-07 Emergency Singer [facility] [id number] Univers 12:21:00 14:08:00 Brijesh FULLER [id number] i [facility] [id number] [facility] [id number] [address] 2022-01-01 2022-01-01 Telephone Blake, PAM [id number] Univers 00:00:00 00:00:00 Martha BRANHAM [id number] i ty [id number] [id number] [address] 2021-12-26 2021-12-26 Emergency X BAUMAN, [facility] ERT [id number] Univers 15:49:00 21:17:00 CAROL y [facility] 2021-12-26 2021-12-26 Emergency Bauman, [facility] [id number] Univers 15:49:00 21:17:00 Carol FULLER [id number] i ty [facility] [id number] [id number] [address] 2021-12-02 2021-12-02 Emergency X CORTNEY, K [facility] ERT [id number] Univers 19:43:00 22:54:00 ity [facility] 2021-12-02 2021-12-02 Emergency Cortney, K [facility] [id number] Univers 19:43:00 22:54:00 Vicki FULLER [id number] i ty of [facility] [id number] [id number] [address] 2021-11-08 2021-11-08 Emergency Bauman, [facility] [id number] Univers 10:57:00 15:20:00 Carol HERNANDEZBENITO [id number] i ty of [facility] [id number] [id number] [address] 2021-11-08 2021-11-08 Emergency X BAUMAN, [facility] ERT [id number] Univers 10:57:00 15:20:00 CAROL [facility] 2021-11-08 2021-11-08 Orders Doctor WARNER [id number] Univers 00:00:00 00:00:00 Only Unassigned, CASEY [id number] ity of [place] [facility] [id number] [place] as [id number] [facility] 009 Branch 2021-10-16 2021-10-16 Emergency X [facility] ERT [id number] Univers 18:43:00 20:01:00 ALEJO gardner [facility] 2021-10-16 2021-10-16 Emergency [facility] [id number] Univers 18:43:00 20:01:00 MigeulCecelia FULLER [id number] i ty of [place] [id number] [facility] [id number] [address] 2021-10-16 2021-10-16 ALANA Mittal [id number] Univers 00:00:00 00:00:00 (Out) Wild PEÑA 350.1.13.10 it y of [facility] [id number] [place] [id number] [facility] 019 [place] 2021-10-13 2021-10-13 Emergency X [facility] ERT [id number] Univers 12:24:00 15:04:00 RAINE gardner [facility] 2021-10-13 2021-10-13 Emergency [facility] [id number] Univers 12:24:00 15:04:00 Raine FULLER 350.1.13.10 i ty of [place] [id number] [facility] [id number] [address] 2021-09-25 2021-09-25 Outpatient R CATHY [facility] [id number] Univers 15:00:00 15:00:00 ANDRES pulidobill [facility] 2021-09-15 2021-09-15 Emergency [facility]RT [id number] Univers 06:56:00 09:12:00 BRIJESH gardner [facility] 2021-09-15 2021-09-15 [facility] [id number] Univers 06:56:00 09:12:00 Brijesh FULLER 350.1.13.10 i ty [id number] [id number] [facility] 084 [place] 2021-09-13 2021-09-13 Letter Only, Erasmo [facility] [id number] Univers 00:00:00 00:00:00 (Out) Db Test HEALTH 350.1.13.10 it y of [facility] [id number] [place] MARIE?BLEA [id number] [address] MEDICAL OFFICE [facility] 2021-09-12 2021-09-12 Urgent [facility] [id number] Univers 10:20:00 10:39:27 Care Key HEALTH 350.1.13.10 it y of [place] [id number] [place] MARIE?BLEA [id number] [address] OFFICE [facility] 2021-09-12 2021-09-12 Outpatient R NAI [facility] [id number] Univers 10:20:00 10:39:27 KEY ity [facility] 2021-09-12 2021-09-12 [facility] [id number] Univers 10:20:00 10:20:00 KEY ity [facility] 2021-09-12 2021-09-12 Orders Doctor WARNER [id number] Univers 00:00:00 00:00:00 Only Unassigned, CASEY 350.1.13.10 ity of [place] [facility] 4.2.7.2.686 [place] as [id number] [facility] 009 Branch 2021-09-01 2021-09-01 Emergency X AUFDERHEIDE [facility] ERT [id number] Univers 20:11:00 22:44:00 , LASHONDA ity [facility] 2021-09-01 2021-09-01 [facility] [id number] Univers 20:11:00 22:44:00 , Lashonda FULLER 350.1.13.10 i ty of [place] [id number] [facility] 084 Branch 2021-07-17 2021-07-17 Nurse ALANA Serrano [id number] Univers 00:00:00 00:00:00 Triage Audrey PEÑA 350.1.13.10 it y of [facility] [id number] [place] [id number] [facility] 019 Branch 2021-06-06 2021-06-06 Transition PAM [place] [id number] Univers 00:00:00 00:00:00 of Care Jenna BRANHAM 350.1.13.10 ity [facility] [id number] [facility] [id number] [facility] 403 Branch 2021-06-04 2021-06-04 Outpatient X MORENITAFORMERLY [facility] [id number] Univers 07:20:00 20:17:00 RODRIGO ity [facility] 2021-06-04 2021-06-04 [facility] Luciano Saulo SLOANNIE [id number] Univers 07:20:00 20:17:00 Encounter Felicity Donjonathan PEÑ[place] 350.1.13. 10 ity of [facility] 4.2.7.2.68 6 [place] [phone] [facility] 095 [place] Results Test Description Test Time Test Comments Results Result Comments Source COMP. METABOLIC PANEL (36182) 2022-01-07 19:33:08 Test Item Value Reference Range Interpretation Comme nts NA (test code = 7149676090) 132 mmol/L 135-145 L K (test code = 3671253781) 4.7 mmol/L 3.5-5.0 CL (test code = 8473005177) 102 mmol/L 98-108 CO2 TOTAL (test code = 4205187223) 16 mmol/L 23-31 L AGAP (test code = 2505550174) 2-16 BUN (test code = 3635546069) 9 mg/dL 7-23 GLUCOSE (test code = 5757692954) 332 mg/dL 70-110 H CREATININE (test code = 0.68 mg/dL 0.50-1.04 2483794408) TOTAL BILI (test code = 0.7 mg/dL 0.1-1.3 1570529977) CALCIUM (test code = 9929745086) 8.7 mg/dL 8.6-10.6 T PROTEIN (test code = 5226615933) 7.1 g/dL 6.3-8.2 ALBUMIN (test code = 6887455180) 3.8 g/dL 3.5-5.0 ALK PHOS (test code = 0838807521) 97 U/L 34-122 ALTv (test code = 1742-6) 24 U/L 5-35 AST(SGOT) (test code = 3215969103) 22 U/L 13-40 eGFR (test code = 8729115541) mL/min/1.73m2 ANTOINE (test code = ANTOINE) Association of Glomerular Filtration Rate (GFR) and Staging of Kidney Disease* + +-------- + ------+| GFR (mL/min/1.73 m2) ?| With Kidney Damage ?| ?Without Kidney Damage+ +-- + +| ?>90 ?| ?Stage one ?| ? Normal ?+ +------- + -------+| ?60-89 ?| ?Stage two ?| ? Decreased GFR ? + +-------- + ------+| ?30-59 ?| ?Stage three ?| ? Stage three ? + +-------- + ------+| ?15-29 ?| ?Stage four ? | ? Stage four ?+ +------- + -------+| ?<15 (or dialysis) ? ?| ?Stage five ? | ? Stage five ?+ +------- + -------+ *Each stage assumes the associated GFR level has been in effect for at least three months. ?Stages 1 to 5, with or without kidney disease, indicate chronic kidney disease. Notes: Determination of stages one and two (with eGFR >59mL/min/1.73 m2) requires estimation of kidney damage for at least three months as defined by structural or functional abnormalities of the kidney, manifested by either:Pathological abnormalities or Markers of kidney damage (including abnormalities in the composition of the blood or urine or abnormalities in imaging tests). Lab Interpretation (test code = Abnormal 79958-5) [facility] [id number] 19:29:08 Test Item Value Reference Range Interpretation Comments LACTIC ACID (test code = 3.00 mmol/L 0.50-2.20 H 9861518956) Lab Interpretation (test code = Abnormal 35712-9) [facility] WITH [id number] 00:28:02 Test Item Value Reference Range Interpretation Comments WBC (test code = See_Comment H [Automated 6690-2) message] The sy stem which generated this result transmitted reference range : 4.30 - 11.10 10*3/?L. The reference range was not used to interpret this result as normal/abnormal . RBC (test code = See_Comment H [Automated 789-8) message] The sy stem which generated this result transmitted reference range : 3.93 - 5.25 10*6/?L. The reference range was not used to interpret this result as normal/abnormal . HGB (test code = 19.1 g/dL 11.6-15.0 H 718-7) HCT (test code = 53.5 % 35.7-45.2 H 4544-3) MCV (test code = 85.5 fL 80.6-95.5 787-2) MCH (test code = 30.5 pg 25.9-32.8 785-6) MCHC (test code = 35.7 g/dL 31.6-35.1 H 786-4) RDW-SD (test code = 40.3 fL 39.0-49.9 87018-2) RDW-CV (test code = 13.1 % 12.0-15.5 788-0) PLT (test code = See_Comment [Automated 777-3) message] The sy stem which generated this result transmitted reference range : 166 - 358 10*3/ ?L. The reference r shayla was not used to interpret this result as normal/abnormal . MPV (test code = 10.6 fL 9.5-12.9 76887-8) IPF % (test code = 1.5 % 1.3-7.7 Platelet count 4769827749) measured by fluorescence method. NRBC/100 WBC (test See_Comment [Automat ed code = 2906081144) message] The system which generated this result transmitted reference range : 0.0 - 10.0 /100 WBCs. The refer ence range was not u sed to interpret th is result as normal/abnormal . NRBC x10^3 (test code See_Comment [Auto mated = 3314860946) message] The s ystem which generated this result transmitted reference range : 10*3/?L. The reference range was not used to interpret this result as normal/abnormal . GRAN MAT (NEUT) % 69.5 % (test code = 770-8) IMM GRAN % (test code 0.90 % = 3399972743) LYMPH % (test code = 20.0 % 736-9) MONO % (test code = 5.0 % 5905-5) EOS % (test code = 3.9 % 713-8) BASO % (test code = 0.7 % 706-2) GRAN MAT x10^3(ANC) 8.40 10*3/uL 1.88-7.09 H (test code = 7054585195) IMM GRAN x10^3 (test 0.11 10*3/uL 0.00-0.06 H code = 3476611947) LYMPH x10^3 (test code 2.42 10*3/uL 1.32-3.29 = 731-0) MONO x10^3 (test code 0.60 10*3/uL 0.33-0.92 = 742-7) EOS x10^3 (test code = 0.47 10*3/uL 0.03-0.39 H 711-2) BASO x10^3 (test code 0.09 10*3/uL 0.01-0.07 H = 704-7) Lab Interpretation Abnormal (test code = 62545-9) [facility]OL[facility] (74472)2021-12-26 22:45:51 Test Item Value Reference Range Interpretation Comments NA (test code = 131 mmol/L 135-145 L 7443180779) K (test code = 4.4 mmol/L 3.5-5.0 2171150999) CL (test code = 101 mmol/L 98-108 6774775937) CO2 TOTAL (test code = 17 mmol/L 23-31 L 8878535211) AGAP (test code = 2-16 5339625809) BUN (test code = 7 mg/dL 7-23 6135984625) GLUCOSE (test code = 292 mg/dL 70-110 H 9498349745) CREATININE (test code = 0.62 mg/dL 0.50-1.04 4440422010) TOTAL BILI (test code = 0.6 mg/dL 0.1-1.7 4974266123) CALCIUM (test code = 8.7 mg/dL 8.6-10.6 8407553110) T PROTEIN (test code = 7.3 g/dL 6.3-8.2 8742119652) ALBUMIN (test code = 3.9 g/dL 3.5-5.0 5312750784) ALK PHOS (test code = 97 U/L 34-122 2530006185) ALTv (test code = 28 U/L 5-35 1742-6) AST(SGOT) (test code = 27 U/L 13-40 0503766766) eGFR (test code = mL/min/1.73m2 3143218079) ANTOINE (test code = ANTOINE) Association of Glomerular Filtration Rate (GFR) and Staging of Kidney Disease* + --+ --+ ------+| GFR (mL/min/1.73 m2) ?| With Kidney Damage ?| ?Without Kidney Damage+ --------+ --------+ +| ?>90 ?| ?Stage one ?| ? Normal ?+ ---+ ---+ -------+| ?60-89 ?| ?Stage two ?| ? Decreased GFR ? + --+ --+ ------+| ?30-59 ?| ?Stage three ?| ? Stage three ? + --+ --+ ------+| ?15-29 ?| ?Stage four ? | ? Stage four ?+ ---+ ---+ -------+| ?<15 (or dialysis) ? ?| ?Stage five ? | ? Stage five ?+ ---+ ---+ -------+ *Each stage assumes the associated GFR level has been in effect for at least three months. ?Stages 1 to 5, with or without kidney disease, indicate chronic kidney disease. Notes: Determination of stages one and two (with eGFR >59mL/min/1.73 m2) requires estimation of kidney damage for at least three months as defined by structural or functional abnormalities of the kidney, manifested by either:Pathological abnormalities or Markers of kidney damage (including abnormalities in the composition of the blood or urine or abnormalities in imaging tests). Lab Interpretation Abnormal (test code = 62502-3) [facility] [id number] 22:05:00 Test Item Value Reference Range Interpretation Comments POCT PREG (test code = 1605) negative On board controls acceptable with present C Line (test code = 3574) POCT PREG LOT # (test code = 3575) [id number] POCT PREG TEST DATE (test 04/10/22 code = 3576) Lab Interpretation (test code = Normal 35175-7) [facility] GLUCOSE (AUTOMATED)2021-12-03 03:40:11 Test Item Value Reference Range Interpretation Comments POCT GLU (test code = 7471530933) 250 mg/dL 70-110 H Lab Interpretation (test code = Abnormal 91097-4) [facility]D-[id number] 03:24:04 Test Item Value Reference Interpretation Comments Range D-DIMER (test code = See_Comment [Autom ated 2028259233) message] The system which generated this result transmitted reference range : <0.41 ?g/mL (FEU). The reference range was not used to interpret this result as normal/abnormal . ANTOINE (test code = This test may be ANTOINE) used in conjunction with a clinical pretest probability (PTP) assessment model to exclude venous thromboembolism (VTE) in patients suspected of deep venous thrombosis (DVT) and pulmonary embolism (PE) A D-Dimer value less than 0.50 ?g/ml (FEU) has a negative predicative value of 96 to 100% (95% CI)and 97 to 100% (95% CI) as an aid in the diagnosis of deep vein thrombosis (DVT) and pulmonary embolism when there is low or moderate pretest probability of PE or DVT. D-Dimer values are expressed in initial fibrinogen equivalent units (FEU)" The assay results should be used with other information, including the clinical context, in forming a diagnosis. Lab Interpretation Normal (test code = 07319-1) [facility] GLUCOSE (AUTOMATED)2021-12-03 03:03:40 Test Item Value Reference Range Interpretation Comments POCT GLU (test code = 3276831750) 414 mg/dL 70-110 H Lab Interpretation (test code = Abnormal 35716-2) [facility] >30DAYS[facility]2021-12-03 02:59:00 Test Item Value Reference Range Interpretation Comments POCT Glu (age>30days) (test code = 414 mg/dL 70-110 A 3342) Lab Interpretation (test code = Abnormal 68698-4) [facility] CenterTROP[facility] [id number] 01:49:20 Test Item Value Reference Interpretation Comments Range TROPONIN I (test 0.003 ng/mL See_Comment [Automated code = 5290874591) message] The system which generated this result transmitted reference range : <=0.034. The reference range was not used to interpret this result as normal/abnormal . ANTOINE (test code = Reference (Normal) ANTOINE) Range (defined by the 99th percentile reference limit): <= 0.034 ng/mL Note: Cardiac troponin begins to rise 3-4 hours after the onset of ischemia. Repeat in 4-6 hours if the sample was drawn within 3-4 hours of the onset of the symptom and found normal. Diagnosis of myocardial injury is made with acute changes in cTn concentrations with at least one serial sample above the 99th percentile upper reference limit (URL), taken together with the patient's clinical presentation. Biotin has been reported to cause a negative bias, interpret results relative to patient's use of biotin. Lab Interpretation Normal (test code = 47232-4) [facility]. METABOLIC PANEL (80387)2021-12-03 01:48:59 Test Item Value Reference Range Interpretation Comments NA (test code = 131 mmol/L 135-145 L 1226429113) K (test code = 4.9 mmol/L 3.5-5 9824299345) CL (test code = 97 mmol/L 98-108 L 9499829988) CO2 TOTAL (test code = 16 mmol/L 23-31 L 3965890044) AGAP (test code = 2-16 H 9924977574) BUN (test code = 8 mg/dL 7-23 4982855394) GLUCOSE (test code = 474 mg/dL 70-110 HH 4459569118) CREATININE (test code = 0.63 mg/dL 0.5-1.04 3862038083) TOTAL BILI (test code = 1.1 mg/dL 0.1-1.5 4943308122) CALCIUM (test code = 9.5 mg/dL 8.6-10.6 2951714976) T PROTEIN (test code = 7.6 g/dL 6.3-8.2 3452267864) ALBUMIN (test code = 4.2 g/dL 3.5-5 5664386591) ALK PHOS (test code = 100 U/L 34-122 4710362955) ALTv (test code = 20 U/L 5-35 1742-6) AST(SGOT) (test code = 26 U/L 13-40 1976213574) eGFR (test code = mL/min/1.73m2 8642882194) ANTOINE (test code = ANTOINE) Association of Glomerular Filtration Rate (GFR) and Staging of Kidney Disease* + --+ --+ ------+| GFR (mL/min/1.73 m2) ?| With Kidney Damage ?| ?Without Kidney Damage+ --------+ --------+ +| ?>90 ?| ?Stage one ?| ? Normal ?+ ---+ ---+ -------+| ?60-89 ?| ?Stage two ?| ? Decreased GFR ? + --+ --+ ------+| ?30-59 ?| ?Stage three ?| ? Stage three ? + --+ --+ ------+| ?15-29 ?| ?Stage four ? | ? Stage four ?+ ---+ ---+ -------+| ?<15 (or dialysis) ? ?| ?Stage five ? | ? Stage five ?+ ---+ ---+ -------+ *Each stage assumes the associated GFR level has been in effect for at least three months. ?Stages 1 to 5, with or without kidney disease, indicate chronic kidney disease. Notes: Determination of stages one and two (with eGFR >59mL/min/1.73 m2) requires estimation of kidney damage for at least three months as defined by structural or functional abnormalities of the kidney, manifested by either:Pathological abnormalities or Markers of kidney damage (including abnormalities in the composition of the blood or urine or abnormalities in imaging tests). Lab Interpretation Abnormal (test code = 01679-6) [facility] 01:38:21 Test Item Value Reference Range Interpretation Comments MAGNESIUM (test code = 5295454248) 1.5 mg/dL 1.7-2.4 L Lab Interpretation (test code = Abnormal 10261-5) [facility] 01:38:01 Test Item Value Reference Range Interpretation Comments LIPASE (test code = 4533210428) 169 U/L 0-220 Lab Interpretation (test code = Normal 00537-0) [facility] WITH [id number] 01:26:23 Test Item Value Reference Range Interpretation Comments WBC (test code = See_Comment H [Automated 6524-2) message] The system which generated this result transmit snow reference range : 4.30 - 11.10 10*3/?L. The reference range was not used to interpret this result as normal/abnormal . RBC (test code = See_Comment [Automated 042-8) message] The system which generated this result transmit snow reference range : 3.93 - 5.25 10*6/?L. The reference range was not used to interpret this result as normal/abnormal . HGB (test code = 13.1 g/dL 11.6-15 718-7) HCT (test code = 35.8 % 35.7-45.2 4544-3) MCV (test code = 86.5 fL 80.6-95.5 787-2) MCH (test code = 31.6 pg 25.9-32.8 785-6) MCHC (test code = 36.6 g/dL 31.6-35.1 H 786-4) RDW-SD (test code = 39.4 fL 39-49.9 30865-3) RDW-CV (test code = 12.6 % 12-15.5 788-0) PLT (test code = See_Comment [Automated 777-3) message] The system which generated this result transmit snow reference range : 166 - 358 10*3/ ?L. The reference range was not u sed to interpret th is result as normal/abnormal . MPV (test code = 10.7 fL 9.5-12.9 18074-6) NRBC/100 WBC (test See_Comment [Automat ed code = 8789049146) message] The system which generated this result transmit snow reference range : 0.0 - 10.0 /100 WBCs. The reference range was not used to interpret this result as normal/abnormal . NRBC x10^3 (test code See_Comment [Auto mated = 9558142420) message] The system which generated this result transmit snow reference range : 10*3/?L. The reference range was not used to interpret this result as normal/abnormal . GRAN MAT (NEUT) % 71.2 % (test code = 770-8) IMM GRAN % (test code 0.40 % = 8142103228) LYMPH % (test code = 18.0 % 736-9) MONO % (test code = 7.7 % 5905-5) EOS % (test code = 2.1 % 713-8) BASO % (test code = 0.6 % 706-2) GRAN MAT x10^3(ANC) 11.44 10*3/uL 1.88-7.09 H (test code = 7788076393) IMM GRAN x10^3 (test 0.07 10*3/uL 0-0.06 H code = 6673921001) LYMPH x10^3 (test code 2.90 10*3/uL 1.32-3.29 = 731-0) MONO x10^3 (test code 1.24 10*3/uL 0.33-0.92 H = 742-7) EOS x10^3 (test code = 0.33 10*3/uL 0.03-0.39 711-2) BASO x10^3 (test code 0.09 10*3/uL 0.01-0.07 H = 704-7) Lab Interpretation Abnormal (test code = 47221-4) [facility] GLUCOSE (AUTOMATED)2021-12-03 01:03:21 Test Item Value Reference Range Interpretation Comments POCT GLU (test code = 8257506623) 471 mg/dL 70-110 HH Lab Interpretation (test code = Abnormal 44385-9) [facility] GLUCOSE(AGE >30DAYS)2021-12-03 01:03:00 Test Item Value Reference Range Interpretation Comments POCT Glu (age>30days) (test code = 471 mg/dL 70-110 A 3342) Lab Interpretation (test code = Abnormal 43045-9) [facility]PO[facility] [id number] 17:13:00 Test Item Value Reference Range Interpretation Comments POCT PREG (test code = 1605) negative On board controls acceptable with yes C Line (test code = 3574) POCT PREG LOT # (test code = 3575) [id number] POCT PREG TEST DATE (test 02/10/2023 code = 3576) Lab Interpretation (test code = Normal 21253-9) [facility] METABOLIC PANEL (NA, K, CL, CO2, GLUCOSE, BUN, CREATININE, CA)2021-10-17 00:39:32 Test Item Value Reference Range Interpretation Comments NA (test code = 133 mmol/L 135-145 L 0050075702) K (test code = 3.8 mmol/L 3.5-5 9921550754) CL (test code = 104 mmol/L 98-108 0542318217) CO2 TOTAL (test code = 18 mmol/L 23-31 L 0398052631) AGAP (test code = 2-16 3310005713) BUN (test code = 10 mg/dL 7-23 9854594605) GLUCOSE (test code = 231 mg/dL 70-110 H 7213875525) CREATININE (test code = 0.61 mg/dL 0.5-1.04 4235013839) CALCIUM (test code = 8.7 mg/dL 8.6-10.6 2592825313) eGFR (test code = mL/min/1.73m2 2112403386) ANTOINE (test code = ANTOINE) Association of Glomerular Filtration Rate (GFR) and Staging of Kidney Disease* + --+ --+ ------+| GFR (mL/min/1.73 m2) ?| With Kidney Damage ?| ?Without Kidney Damage+ --------+ --------+ +| ?>90 ?| ?Stage one ?| ? Normal ?+ ---+ ---+ -------+| ?60-89 ?| ?Stage two ?| ? Decreased GFR ? + --+ --+ ------+| ?30-59 ?| ?Stage three ?| ? Stage three ? + --+ --+ ------+| ?15-29 ?| ?Stage four ? | ? Stage four ?+ ---+ ---+ -------+| ?<15 (or dialysis) ? ?| ?Stage five ? | ? Stage five ?+ ---+ ---+ -------+ *Each stage assumes the associated GFR level has been in effect for at least three months. ?Stages 1 to 5, with or without kidney disease, indicate chronic kidney disease. Notes: Determination of stages one and two (with eGFR >59mL/min/1.73 m2) requires estimation of kidney damage for at least three months as defined by structural or functional abnormalities of the kidney, manifested by either:Pathological abnormalities or Markers of kidney damage (including abnormalities in the composition of the blood or urine or abnormalities in imaging tests). Lab Interpretation Abnormal (test code = 98580-0) [facility]AT[facility]34680[facility] (ALB,T.PRO,BILI T,BU/BC,ALT,AST,ALK PHOS)2021-10-17 00:39:32 Test Item Value Reference Range Interpretation Comments TOTAL BILI (test code = 9442947707) 0.6 mg/dL 0.1-1.1 BILI UNCON (test code = 2012814061) 0.4 mg/dL 0.1-1.1 BILI CONJ (test code = 4440672306) 0.0 mg/dL 0-0.3 T PROTEIN (test code = 3294849889) 6.8 g/dL 6.3-8.2 ALBUMIN (test code = 6270145092) 4.3 g/dL 3.5-5 ALK PHOS (test code = 0784800083) 78 U/L 34-122 ALTv (test code = 1742-6) 22 U/L 5-35 AST(SGOT) (test code = 0156459167) 25 U/L 13-40 Lab Interpretation (test code = Normal 33129-7) [facility] 00:39:32 Test Item Value Reference Range Interpretation Comments LIPASE (test code = 4236685818) 97 U/L 0-220 Lab Interpretation (test code = Normal 45079-7) [facility]CBC WITH [id number] 00:28:09 Test Item Value Reference Range Interpretation Comments WBC (test code = See_Comment [Automated 6690-2) message] The sy stem which generated this result transmitted reference range : 4.30 - 11.10 10*3/?L. The reference range was not used to interpret this result as normal/abnormal . RBC (test code = See_Comment [Automated 789-8) message] The sy stem which generated this result transmitted reference range : 3.93 - 5.25 10*6/?L. The reference range was not used to interpret this result as normal/abnormal . HGB (test code = 13.6 g/dL 11.6-15 718-7) HCT (test code = 37.7 % 35.7-45.2 4544-3) MCV (test code = 86.3 fL 80.6-95.5 787-2) MCH (test code = 31.1 pg 25.9-32.8 785-6) MCHC (test code = 36.1 g/dL 31.6-35.1 H 786-4) RDW-SD (test code = 39.2 fL 39-49.9 30513-7) RDW-CV (test code = 12.5 % 12-15.5 788-0) PLT (test code = See_Comment [Automated 777-3) message] The sy stem which generated this result transmitted reference range : 166 - 358 10*3/ ?L. The reference r shayla was not used to interpret this result as normal/abnormal . MPV (test code = 9.5 fL 9.5-12.9 99466-8) NRBC/100 WBC (test See_Comment [Automat ed code = 2112205026) message] The system which generated this result transmitted reference range : 0.0 - 10.0 /100 WBCs. The refer ence range was not u sed to interpret th is result as normal/abnormal . NRBC x10^3 (test code See_Comment [Auto mated = 4212759972) message] The s ystem which generated this result transmitted reference range : 10*3/?L. The reference range was not used to interpret this result as normal/abnormal . GRAN MAT (NEUT) % 56.9 % (test code = 770-8) IMM GRAN % (test code 0.40 % = 8164558628) LYMPH % (test code = 30.8 % 736-9) MONO % (test code = 7.5 % 5905-5) EOS % (test code = 4.0 % 713-8) BASO % (test code = 0.4 % 706-2) GRAN MAT x10^3(ANC) 5.49 10*3/uL 1.88-7.09 (test code = 8742672512) IMM GRAN x10^3 (test 0.04 10*3/uL 0-0.06 code = 4971014924) LYMPH x10^3 (test code 2.97 10*3/uL 1.32-3.29 = 731-0) MONO x10^3 (test code 0.72 10*3/uL 0.33-0.92 = 742-7) EOS x10^3 (test code = 0.39 10*3/uL 0.03-0.39 711-2) BASO x10^3 (test code 0.04 10*3/uL 0.01-0.07 = 704-7) Lab Interpretation Abnormal (test code = 34701-0) [facility] [id number] 00:17:00 Test Item Value Reference Range Interpretation Comments POCT PREG (test code = 1605) negative On board controls acceptable with present C Line (test code = 3574) POCT PREG LOT # (test code = 3575) [id number] POCT PREG TEST DATE (test 2023-01-10 code = 3576) Lab Interpretation (test code = Normal 40374-2) [facility] GLUCOSE (AUTOMATED)2021-10-13 17:43:45 Test Item Value Reference Range Interpretation Comments POCT GLU (test code = 6464043642) 281 mg/dL 70-110 H Lab Interpretation (test code = Abnormal 10836-8) [facility]+VCOOX+NA+K+GLU+CA2+2021-09-15 12:49:35 Test Item Value Reference Range Interpretation Comments PH (test code = 7.32-7.42 2990549852) PCO2 ETHAN (test code = See_Comment L [Auto mated message] 5769494403) The system [employer] generated this result transmit snow reference range : 41 - 51 mmHg. The reference range was not used to interpret this result as normal/abnormal . PO2 ETHAN (test code = See_Comment [Autom ated message] 0001171090) The system [employer] generated this result transmit snow reference range : 25 - 40 mmHg. The reference range was not used to interpret this result as normal/abnormal . HCO3 ETHAN (test code = See_Comment L [Auto mated message] 6098604169) The system [employer] generated this result transmit snow reference range : 24 - 28 mEq/L. The reference range was not used to interpret this result as normal/abnormal . AC VBE(BEAKER) (test mEq/L code = 5374863958) THB ETHAN (test code = 14.1 g/dL 12-16 5330367058) %O2HB ETHAN (test code = 71.1 % 52-63 H 6894122172) %COHB ETHAN (test code = 1.5 % 0-1.5 6665597296) %METHB ETHAN (test code = 0.3 % 0.4-1.5 L 0681730622) VOL%O2 ETAHN (test code = 14.1 % 6-12 H 3866082050) NA (test code = 135 mmol/L 135-145 4370484921) K+ (test code = 4.2 mmol/L 3.5-5 8887180913) AC CA IONZ (test code = 4.40 mg/dL 4.5-5.3 L 3192641013) GLUCOSE (test code = 271 mg/dL 70-110 H 6587417115) Lab Interpretation Abnormal (test code = 48465-7) [facility] GLUCOSE (AUTOMATED)2021-09-15 11:58:15 Test Item Value Reference Range Interpretation Comments POCT GLU (test code = 0569187774) 315 mg/dL 70-110 H Lab Interpretation (test code = Abnormal 96459-8) [facility] SARS-COV-2 ANTIGEN (BINAX NOW)2021-09-12 15:17:00 Test Item Value Reference Range Interpretation Comments POCT SARS-COV-2 ANTIGEN (test Not Detected Not Detected code = 5076) On board controls acceptable Yes with C Line (test code = 3574) Lab Interpretation (test code = Normal 97746-1) [facility]
[2022-01-09] MEDS ORDERED: NA CHLORIDE 0.9% 1,000 ML ONE (10:13)
[2022-01-09] MEDS ORDERED: MORPHINE 4 MG/ML SYR ONE (10:13)
[2022-01-09] MEDS ORDERED: ONDANSETRON 4 MG/2 ML VIAL ONE (10:13)
[2022-01-09 10:26] LABS: Urine Blood Negative (Negative); Urine Glucose 3+ (Negative); Urine Protein Negative (Negative); Urine pH 5.5 (5.0-7.0)
[2022-01-09 10:34] LABS: Lymphocytes % 23.8 % (15.3-44.8); MCV 87.6 fL (80-100); MPV 7.6 fL (7.6-11.3); RBC Red Blood Cell Count 4.31 M/uL (3.86-4.86); Urine RBC <5 /HPF (None Seen)
--- NOTE | 2022-01-09 10:51 | RAD REPORT ---
EXAM DESCRIPTION: CT - Stone Protocol - 01/09/2022 10:32 am CLINICAL HISTORY: right flank pain COMPARISON: No comparisons TECHNIQUE: Axial 3 mm thick images were obtained without oral or IV contrast. The mjfjl-qo-ywzr span s the entirety of the system including uppermost abdomen and lung bases. All CT scans are performed using dose optimization technique as appropriate and may include automated exposure control or mA/KV adjustment according to patient size. FINDINGS: Mild left-sided hydronephrosis is present. Left kidney is mildly edematous when compared t o the right. There is no obstructing calculus identifiable. No bladder stone is seen. There is no rig ht-sided hydronephrosis. No nonobstructing calculi present. No suspicious renal masses. Isodense mass es and pyelonephritis are not excluded on a stone protocol CT scan. No significant adrenal finding. N o urinary bladder suspicious finding. Imaged portions of the liver, spleen and pancreas show no suspicious findings on non-contrast imaging . No gallbladder or biliary tree abnormality identified. No suspicious bowel findings. Appendix is normal. No uterine or left ovarian abnormality. Right ovary is prominent but difficult to fully evaluate due to adjacent isodense on opacified small bowel. Right ovary may contain cysts. No evidence for cyst ru pture or hemorrhage. No hernia, mass or bulky lymphadenopathy noted. No free air, free fluid or inflammatory stranding. No significant bony abnormality. IMPRESSION: Mild left-sided hydronephrosis and mildly edematous left kidney without an obstructing c alculus identified. Patient may have recently passed a stone. Blood or inflammatory debris in the ureter can cause this p attern. Isodense masses and pyelonephritis are not excluded. No acute GI process identifiable. There is fullness of the right ovary possibly due to cysts. No susp icion for cyst rupture or hemorrhage. Ovarian assessment is limited.
--- NOTE | 2022-01-09 11:15 | ER ---
Nurse's Notes [facility] Name: Liliana Figueroa Age: 31 yrs Sex: Female : 1990 Arrival Date: 01/09/2022 Time: 09:35 Bed 10 Private MD: Diagnosis: Hyperglycemia, unspecified;Left flank pain;Unspecified hydronephrosis Presentation: 01/09 10:15 Chief complaint: Patient states: NV, fever, hematuria, difficulty urinating with Right vg1 flank pain x 2 weeks. Ebola Screen: Patient negative for fever greater than or equal to 101.5 degrees Fahrenheit, and additional compatible Ebola Virus Disease symptoms. Initial Sepsis Screen: Does the patient meet any 2 criteria? HR > 90 bpm. Does the patient have a suspected source of infection? No. Patient's initial sepsis screen is negative. Risk Assessment: Do you want to hurt yourself or someone else? Patient reports no desire to harm self or others. Onset of symptoms was December 26, 2021. 10:15 Method Of Arrival: Ambulatory vg1 10:15 Acuity: MARY 3 vg1 Triage Assessment: 11:30 General: Appears in no apparent distress. comfortable, Behavior is calm, cooperative, ld1 appropriate for age. GI: Abdomen is round non-distended. 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 Patient/guardian denies using alcohol. Screenin:21 Abuse screen: Denies threats or abuse. Denies injuries from another. Nutritional ld1 screening: No deficits noted. Tuberculosis screening: No symptoms or risk factors identified. Fall Risk None identified. Assessment: 10:21 Reassessment: See triage assessment. Pain: Complains of pain in low back area Pain ld1 currently is 10 out of 10 on a pain scale. Quality of pain is described as sharp, shooting, throbbing. Neuro: Level of Consciousness is awake, alert, obeys commands, Oriented to person, place, time, situation. Cardiovascular: Capillary refill < 3 seconds Patient's skin is warm and dry. Rhythm is sinus rhythm. Respiratory: Airway is patent Respiratory effort is even, unlabored. 11:30 GI: Bowel sounds present X 4 quads. ld1 Vital Signs: 10:15 BP 157 / 96; Pulse 107; Resp 18; Temp 98.3; Pulse Ox 98% ; Weight 86.18 kg; Height 5 vg1 ft. 3 in. (160.02 cm); Pain 10/10; 10:21 BP 140 / 102; Pulse 86; Resp 18; Pulse Ox 99% on R/A; Pain 10/10; ld1 10:15 Body Mass Index 33.66 (86.18 kg, 160.02 cm) vg1 ED Course: 09:35 Patient arrived in ED. rg4 09:35 Divine Cortez FNP-C [facility]. kb 09:35 Nikunj Beauchamp MD is Attending Physician. kb 10:09 Ingrid Aguilar, KEHINDE is Primary Nurse. ld1 10:17 Triage completed. vg1 10:17 Arm band placed on. vg1 10:20 Urine Microscopic Only Sent. ld1 10:21 Patient has correct armband on for positive identification. Placed in gown. Bed in low ld1 position. Call light in reach. Side rails up X2. Pulse ox on. NIBP on. Door closed. Noise minimized. Warm blanket given. 10:21 No provider procedures requiring assistance completed. Inserted saline lock: 20 gauge ld1 in right antecubital area, using aseptic technique. Blood collected. 10:34 CT Stone Protocol In Process Unspecified. EDMS 11:31 IV discontinued, intact, bleeding controlled, No redness/swelling at site. ld1 Administered Medications: 10:20 Drug: NS 0.9% 1000 ml Route: IV; Rate: 1000 ml; Site: right antecubital; ld1 10:20 Drug: Zofran (Ondansetron) 4 mg Route: IVP; Site: right antecubital; ld1 10:20 Drug: morphine 4 mg Route: IVP; Infused Over: 4 mins; Site: right antecubital; ld1 Medication: 10:21 VIS not applicable for this client. ld1 Outcome: 11:14 Discharge ordered by . kb 11:31 Discharged to home ambulatory. ld1 11:31 Condition: stable 11:31 Discharge instructions given to patient, Instructed on discharge instructions, follow up and referral plans. medication usage, Demonstrated understanding of instructions, follow-up care, medications, Prescriptions given X 2. 11:31 Patient left the ED. ld1 Signatures: Dispatcher [employer] EDMS Divine Cortez, GABINO NDIAYE-Shahla Wiley rg4 Mee Alex, RN RN vg1 Ingrid Aguilar RN RN ld1
--- NOTE | 2022-01-09 11:15 | EDPHYS ---
Physician Documentation [facility] Name: Liliana Figueroa Age: 31 yrs Sex: Female : 1990 Arrival Date: 01/09/2022 Time: 09:35 Bed 10 Private MD: ED Physician Nikunj Beauchamp HPI: 01/09 11:12 This 31 yrs old Female presents to ER via Ambulatory with complaints of Possible Kidney kb Stone. 11:12 The patient complains of pain in the left flank. The pain does not radiate. Onset: The kb symptoms/episode began/occurred 1.5 week(s) ago. Modifying factors: The symptoms are alleviated by nothing. the symptoms are aggravated by nothing. Associated signs and symptoms: Pertinent positives: hematuria, nausea. Severity of pain: At its worst the pain was moderate in the emergency department the pain is unchanged. The patient has experienced similar episodes in the past, a few times. The patient has been recently seen by a physician:. Pt reports left flank pain for 1.5 weeks. Was seen at the [facility] and given cefdinir, completed 10 day course, but pain persists. Reports difficulty urinating and intermittent hematuria as well. Pt has history of kidney stones. . FIRST HELPER: 10:17 LMP 12/12/2021 vg1 Historical: - Allergies: 10:17 No Known Allergies; vg1 - PMHx: 10:17 Diabetes mellitus; Kidney Stones; Sepsis; Tachycardia; vg1 - PSHx: 10:17 Heart Cath; Tubal ligation; vg1 - Social history:: Smoking status: Patient denies any tobacco usage or history of. Patient/guardian denies using alcohol. ROS: 11:11 Constitutional: Negative for fever, chills, and weight loss. kb 11:11 Back: Positive for flank pain, on the left. 11:11 : Positive for flank pain, hematuria, difficulty urinating. 11:11 All other systems are negative. Exam: 11:11 Constitutional: This is a well developed, well nourished patient who is awake, alert, kb and in no acute distress. Head/Face: Normocephalic, atraumatic. ENT: Moist Mucous membranes Cardiovascular: Regular rate and rhythm with a normal S1 and S2. No gallops, murmurs, or rubs. No pulse deficits. Respiratory: Respirations even and unlabored. No increased work of breathing. Talking in full sentences Abdomen/GI: Soft, non-tender. No distention Skin: Warm, dry with normal turgor. Normal color. MS/ Extremity: Pulses equal, no cyanosis. Neurovascular intact. Full, normal range of motion. Neuro: Awake and alert, GCS 15, oriented to person, place, time, and situation. Moves all extremities. Normal gait. Psych: Awake, alert, with orientation to person, place and time. Behavior, mood, and affect are within normal limits. 11:11 Back: pain, that is moderate, of the left flank, ROM is normal, normal spinal alignment noted. 11:12 Back: CVA tenderness, that is moderate, is noted on the left. kb Vital Signs: 10:15 BP 157 / 96; Pulse 107; Resp 18; Temp 98.3; Pulse Ox 98% ; Weight 86.18 kg; Height 5 vg1 ft. 3 in. (160.02 cm); Pain 10/10; 10:21 BP 140 / 102; Pulse 86; Resp 18; Pulse Ox 99% on R/A; Pain 10/10; ld1 10:15 Body Mass Index 33.66 (86.18 kg, 160.02 cm) vg1 MDM: 09:58 Patient medically screened. kb 11:12 Data reviewed: vital signs, nurses notes. Data interpreted: Pulse oximetry: on room air kb is 99 %. Interpretation: normal. Counseling: I had a detailed discussion with the patient and/or guardian regarding: the historical points, exam findings, and any diagnostic results supporting the discharge/admit diagnosis, lab results, radiology results, the need for outpatient follow up, a family practitioner, to return to the emergency department if symptoms worsen or persist or if there are any questions or concerns that arise at home. 01/09 10:02 Order name: CBC with Diff; Complete Time: 11:25 kb 01/09 10:02 Order name: Basic Metabolic Panel; Complete Time: 10:58 kb 01/09 10:02 Order name: CT Stone Protocol; Complete Time: 10:52 kb 01/09 10:02 Order name: Urine Microscopic Only; Complete Time: 10:42 kb 01/09 10:26 Order name: Urine Dipstick-Ancillary; Complete Time: 10:42 EDMS 01/09 10:27 Order name: Urine --Ancillary (enter results); Complete Time: 10:44 bd 01/09 10:02 Order name: IV Start; Complete Time: 10:20 kb 01/09 10:02 Order name: Urine Dipstick-Ancillary (obtain specimen); Complete Time: 10:20 kb Administered Medications: 10:20 Drug: NS 0.9% 1000 ml Route: IV; Rate: 1000 ml; Site: right antecubital; ld1 10:20 Drug: Zofran (Ondansetron) 4 mg Route: IVP; Site: right antecubital; ld1 10:20 Drug: morphine 4 mg Route: IVP; Infused Over: 4 mins; Site: right antecubital; ld1 Disposition: 11:41 PA/TOMOGRAPHY TECHNOLOGIST's history reviewed, patient interviewed, and examined. I agree with assessment [id number] and care plan and confirm the diagnosis (es) above. Attestation: The patient's history, exam findings, diagnostics, and a summary of any interventions or procedures was reviewed in detail with Divine LLOYD. Disposition Summary: 01/09/22 11:14 Discharge Ordered Location: Home kb Condition: Stable kb Diagnosis - Hyperglycemia, unspecified kb - Left flank pain kb - Unspecified hydronephrosis kb Followup: kb - With: Emergency Department - When: As needed - Reason: Worsening of condition Followup: kb - With: Private Physician - When: 2 - 3 days - Reason: Recheck today's complaints, Continuance of care, Re-evaluation by your physician Discharge Instructions: - Discharge Summary Sheet kb - Hydronephrosis kb - Hyperglycemia, [id number] kb - Flank Pain, Adult, [id number] kb Forms: - Medication Reconciliation Form kb - Thank You Letter kb - Antibiotic Education kb - Prescription Opioid Use kb Prescriptions: - Zofran 4 mg Oral Tablet - take 1 tablet by ORAL route every 6 hours As needed; 20 tablet; Refills: 0, kb Product Selection Permitted - Diclofenac Sodium 75 mg Oral tablet,delayed release (DR/EC) - take 1 tablet by ORAL route 2 times per day As needed; 30 tablet; Refills: 0, kb Product Selection Permitted Signatures: Dispatcher [employer] Divine Lu FNP-C FNP-Mee Wiley RN RN vg1 Ingrid Aguilar RN RN ld1 Nikunj Beauchamp MD MD [id number]
[2022-01-09 11:22] LABS: Hematocrit 39.8 % (36.0-45.0)
[2022-01-09 11:38] VITALS: TEMP 98.3
[2022-01-09 11:40] VITALS: BP 140/102; O2SAT 99
== END 2022-01-09 11:31 | disposition home or self-care (01) ==
LOC: ER 09:33
DX: N13.30 Unspecified hydronephrosis (principal); E11.65 Type 2 diabetes mellitus with hyperglycemia
CPT/HCPCS: 36415; 74176; 76377; 80048; 81003; 81015; 81025; 85025; 96374; 96375; 99284; J2405; J7030

== ENCOUNTER 2022-01-14 12:45 | Emergency (ER) | payer SELFPAY ==
--- OUTSIDE RECORDS SUMMARY | 2022-01-14 12:52 | XMS REPORT | Continuity of Care Document ---
:1990 Author Organization [facility] t Address [address] [place] [address] Care Team Providers Name Role Phone Pcp, Patient Does Not Have A Primary Care Physician [phone] ANGELIA CARVER Attending Clinician Unavailable Angelia Carver DO Attending Clinician SRINI GORDON Attending Clinician Unavailable Srini Gordon DO Attending Clinician Martha Blake MA Attending Clinician Unavailable CAROL BAUMAN Attending Clinician Unavailable Carol Swann Attending Clinician Carmen Goodrich Attending Clinician Carmen BARR Attending Clinician Unavailable Doctor Unassigned, Ten Sleep Attending Clinician Unavailable CONG CHUN Attending Clinician Unavailable Cong Chun MD Attending Clinician Wild Peter RN Attending Clinician Unavailable RAINE REESE Attending Clinician Unavailable Raine Rodriguez Attending Clinician ANDRES MORGAN Attending Clinician Unavailable Only, Ang Db Test Attending Clinician Unavailable Anastasia Rodriguez Attending Clinician ANASTASIA TRIMBLE Attending Clinician Unavailable LASHONDA LINK Attending Clinician Unavailable Rod TAVAREZ, Lashonda Juarez Attending Clinician [phone] Audrey Serrano RN Attending Clinician Unavailable Jenna Montana LVN Attending Clinician BLAYNE XAVIER Attending Clinician Unavailable Saulo Wolf MD Attending Clinician Don Blevins MD Attending Clinician Blayne Xavier MD Attending Clinician CAROL BAUMAN Admitting Clinician Unavailable Carmen BARR Admitting Clinician Unavailable SRINI GORDON Admitting Clinician Unavailable LASHONDA LINK Admitting Clinician Unavailable BLAYNE XAVIER Admitting Clinician Unavailable Blayne Xavier MD Admitting Clinician Payers Payer Name Policy Type Policy Number Effective Date Expiration Date S jacob [facility] [id number] 2021 HEALTHCARE 00:00:00 Problems Condition Condition Condition Status Onset Resolution Last Treating Co mments Source Name Details Category Date Date Treatment Clinician Date UTI UTI Disease Active Univers (urinary (urinary 4-24 ity of tract tract 00:00: [place] infection) infection) 00 Or dicar Branch Allergies, Adverse Reactions, Alerts Allergy Allergy Status Severity Reaction(s) Onset Inactive Treating Comm ents Source Name Type Date Date Clinician LATEX DRUG Active Rash 2021-0 Univers INGREDI - ity of 00:00: 00 Medical Branch Latex Propensi Active Rash 2021-0 Univers ty to 10-13 ity of adverse 00:00: [place] reaction 00 Medical s Branch Penicill Propensi Active Anaphylaxis 2021-0 U nivers in ty to 6-27 ity of adverse 00:00: [place] reaction 00 Medical s Branch PENICILL DRUG Active Anaphylaxis 2021-0 Uni vers IN INGREDI 6-27 ity of 00:00: 00 Medical Branch FISH OIL DRUG Active Hives 2021-0 Univers INGREDI 4-24 ity of 00:00: 00 Medical Branch PENICILL Drug Active Anaphylaxis 2021-0 Uni vers INS Class 4-24 ity of 00:00: 00 Medical Branch Penicill Propensi Active Anaphylaxis 2022-0 U nivers ins ty to 4-24 ity of adverse 00:00: [place] reaction 00 Medical s Branch Fish Oil Propensi Active Hives Univer s ty to 4-24 ity of adverse 00:00: [place] reaction 00 Medical s Branch Penicill Propensi Active Anaphylaxis U nivers ins ty to 4-24 ity of adverse 00:00: [place] reaction 00 Medical s Branch Social History Social Habit Start Date Stop Date Quantity Comments Source History [facility] University o f Alcohol Frequency [place] [facility] History [facility] University o f Alcohol Std [place] Medical Drinks Branch History [facility] o f Alcohol Binge [place] Medic al Branch Exposure to 2022-01-03 2022-01-13 Not sure University of SARS-CoV-2 00:00:00 07:13:00 [facility] (event) Branch Tobacco use and 2021-06-04 2021-06-04 Smokeless tobacco Un iversity of exposure 00:00:00 00:00:00 non-user [facility] Alcohol Comment 2021-06-04 2021-06-04 drinks 2x a year Uni versity of 00:00:00 00:00:00 [facility] Sex [birth year] At [birth year] Universit y of 00:00:00 00:00:00 [facility] Smoking Status Start Date Stop Date Source Tobacco smoking consumption [facility] [place] [facility] unknown Branch Medications Ordered Filled Start Stop Current Ordering Indication Dosage Frequency Signature Comments Components Source Medication Medication Date Date Medication? Clinician (SIG) Name Name ketorolac 2021-02 No 30mg 30 mg, Unive rs (TORADOL) 03-16 Slow IV ity of injection 14:30: 13:41 Push, [place] 30 mg 00 :00 ONCE, 1 Medical dose, On Branch 01/13/22 at 0830, Routine NaCl 0.9% 2021-02 No 1000mL at 999 Uni vers (NS) bolus 03-16 mL/hr, ity of infusion 14:30: 14:15 1,000 mL, [place] 1,000 mL 00 :00 IV Medical Infusion, Branch ONCE, 1 dose, On 01/13/22 at 0830, JOSE LUIS metoclopram 2021-02 No 10mg 10 mg, Uni vers crispin HCl 03-16 Slow IV ity of (REGLAN) 13:45: 13:41 Push, [place] injection 00 :00 ONCE, 1 Medical 10 mg dose, On Branch 01/13/22 at 0745, JOSE LUIS ketorolac 2021-02- Yes 15mg 15 mg, Unive rs (TORADOL) 03-09 Slow IV ity of injection 20:30: 08:29 Push, [place] 15 mg 00 :00 ONCE, 1 Medical dose, On Branch 01/07/22 at 1430, Routine HYDROcodone 2021-02- No 1{tbl} 1 tablet, Univers -acetaminop 02-26 Oral, ONCE i ty of hen (NORCO) 02:30: 02:01 NOW, 1 [place] as 10-325 mg 00 :00 dose, On Medica l tablet 1 [facility] tablet 12/26/21 at 2030, Routine morpHINE (4 2021-02 No 4mg 4 mg, Slow Univers mg/mL) 02-25 IV Push, ity of injection 4 23:00: 23:04 ONCE, 1 [place] mg 00 :00 dose, On Medical [facility] 12/26/21 at 1700, STAT NaCl 0.9% 2021-02 No 1000mL at 999 Uni vers (NS) bolus 02-25 mL/hr, ity of infusion 22:45: 00:17 1,000 mL, [place] 1,000 mL 00 :00 IV Medical Infusion, Branch ONCE, 1 dose, On e 12/26/21 at 1645, JOSE LUIS ondansetron 2021-02- No 4mg 4 mg, Slow Univers (ZOFRAN 02-25 IV Push, ity of (PF)) 22:00: 22:03 ONCE, 1 [place] injection 4 00 :00 dose, On Medi [place] mg [facility] Branch 12/26/21 at 1600, JOSE LUIS ketorolac 2021-02- No 30mg 30 mg, Unive rs (TORADOL) 02-25 Slow IV ity of injection 22:00: 22:04 Push, [place] 30 mg 00 :00 ONCE, 1 Medical dose, On Branch [facility] 12/26/21 at 1600, JOSE LUIS insulin 2021-02- No 8U 8 Units, Unive rs regular 012-03 IV Push, ity of human 04:00: 03:03 ONCE, 1 [place] (HUMULIN R) 00 :00 dose, On Medi [place] injection 8 Sat Branch Units 12/02/21 at 2300, Routine
Indicatio n for insulin: Hyperglyce angel ketorolac 2021-02- No 15mg 15 mg, Unive rs (TORADOL) 012-03 Slow IV ity of injection 03:00: 01:56 Push, [place] 15 mg 00 :00 ONCE, 1 Medical dose, On Branch 12/02/21 at 2200, JOSE LUIS NaCl 0.9% 2021-02- No 1000mL at 999 Uni vers (NS) bolus 012-03 mL/hr, ity of infusion 02:45: 03:39 1,000 mL, [place] 1,000 mL 00 :00 IV Medical Infusion, Branch ONCE, 1 dose, On 12/02/21 at 2145, STAT magnesium 2021-02 No 2g 2 g, IV Univ ers sulfate in 12-03 Piggyback, it y of water 2 02:45: 02:54 Administer [place] gram/50 mL 00 :00 over 60 Medica l (4 %) Minutes, Branch infusion 2 ONCE, 1 g dose, On 12/02/21 at 2145, Routine NaCl 0.9% 2021-02- No 1000mL at 999 Uni vers (NS) bolus 012-03 mL/hr, ity of infusion 02:00: 03:39 1,000 mL, [place] 1,000 mL 00 :00 IV Medical Infusion, Branch ONCE, 1 dose, On 12/02/21 at 2100, STAT ondansetron 2021-02- No 4mg 4 mg, Slow Univers (ZOFRAN 012-03 IV Push, ity of (PF)) 02:00: 01:10 ONCE, 1 [place] injection 4 00 :00 dose, On Medi [place] mg Sat Branch 12/02/21 at 2100, JOSE LUIS insulin 2021-02 Yes 30U inject 30 Unive rs glargine,hu 0-22 Units ity of m.rec.anlog 22:42: under the [place] (CABRERATUS SC) 34 skin 2 Medica l (two) [...] (two) Branch times daily. ondansetron 2021-02 Yes [id number] 8mg Take 1 Univers 8 mg 0-22 tablet by ity of disintegrat 00:00: mouth [place] ing tablet 00 every 8 Medica l (eight) Branch hours as needed for Nausea and Vomiting (N/V). insulin 2021-02 Yes [id number] 30U inject 30 Univers glargine 0-22 Units ity of 100 unit/mL 00:00: under the [place] injection 00 skin in Medical the Branch morning and 30 Units in the evening. ondansetron 2021-02 Yes [id number] 8mg Take 1 Univers 8 mg 0-22 tablet by ity of disintegrat 00:00: mouth [place] ing tablet 00 every 8 Medica l (eight) Branch hours as needed for Nausea and Vomiting (N/V). insulin 2021-02 Yes [id number] 30U inject 30 Univers glargine 0-22 Units ity of 100 unit/mL 00:00: under the [place] injection 00 skin in Medical the Branch morning and 30 Units in the evening. ibuprofen 2021-02 Yes [id number] 600mg Take 1 Univers 600 mg 0-22 tablet by ity of tablet 00:00: mouth [place] 00 every 6 Medical (six) Branch hours as needed for Pain (scale 4-6). ondansetron 2021-02 Yes [id number] 8mg Take 1 Univers 8 mg 0-22 tablet by ity of disintegrat 00:00: mouth [place] ing tablet 00 every 8 Medica l (eight) Branch hours as needed for Nausea and Vomiting (N/V). insulin 2021-02 Yes [id number] 30U inject 30 Univers glargine 0-22 Units ity of 100 unit/mL 00:00: under the [place] injection 00 skin in Medical the Branch morning and 30 Units in the evening. ibuprofen 2021-02 Yes [id number] 600mg Take 1 Univers 600 mg 0-22 tablet by ity of tablet 00:00: mouth [place] 00 every 6 Medical (six) Branch hours as needed for Pain (scale 4-6). ondansetron 2021-02 Yes [id number] 8mg Take 1 Univers 8 mg 0-22 tablet by ity of disintegrat 00:00: mouth [place] ing tablet 00 every 8 Medica l (eight) Branch hours as needed for Nausea and Vomiting (N/V). insulin 2021-02 Yes [id number] 30U inject 30 Univers glargine 0-22 Units ity of 100 unit/mL 00:00: under the [place] injection 00 skin in Medical the Branch morning and 30 Units in the evening. ibuprofen 2021-02 Yes [id number] 600mg Take 1 Univers 600 mg 0-22 tablet by ity of tablet 00:00: mouth [place] 00 every 6 Medical (six) Branch hours as needed for Pain (scale 4-6). ondansetron 2021-02 Yes [id number] 8mg Take 1 Univers 8 mg 0-22 tablet by ity of disintegrat 00:00: mouth [place] ing tablet 00 every 8 Medica l (eight) Branch hours as needed for Nausea and Vomiting (N/V). insulin 2021-02 Yes [id number] 30U inject 30 Univers glargine 0-22 Units ity of 100 unit/mL 00:00: under the [place] injection 00 skin in Medical the Branch morning and 30 Units in the evening. ibuprofen 2021-02 Yes [id number] 600mg Take 1 Univers 600 mg 0-22 [...] ity o f (PF)) 19:45: 18:54 Push, [place] injection 00 :00 ONCE, 1 Medical 50 [...] Medical Infusion, Branch ONCE, 1 dose, On 11/08/21 at 1245, JOSE LUIS ondansetron 2021- No [...] at 1200, JOSE LUIS clindamycin 2021- Yes [id number] 450mg Take 3 Univers 150 mg 11-08 capsules ity of capsule 00:00: 04:59 by mouth [place] 00 :00 in the Medical morning Branch [...] dose, On Sat10/13/21 at 1400, STAT ondansetron 2021- No 4mg 4 mg, Slow Univers (ZOFRAN 10-13 IV Push, ity of (PF)) 18:00: 17:47 ONCE, 1 [place] injection 4 00 :00 dose, On Medi [place] mg Sat10/13/21 Branch at 1300, JOSE LUIS ondansetron 2022-0 Yes [id number] 4mg Take 1 Univers 4 mg 9-02 tablet by ity of disintegrat 00:00: mouth [place] ing tablet 00 every 8 Medica l (eight) Branch hours as needed for Nausea and Vomiting (N/V). ondansetron 2-0 Yes [id number] 4mg Take 1 Univers 4 mg 9-02 tablet by ity of disintegrat 00:00: mouth [place] ing tablet 00 every 8 Medica l (eight) Branch hours as needed for Nausea and Vomiting (N/V). ondansetron 2-0 Yes [id number] 4mg Take 1 Univers 4 mg 9-02 tablet by ity of disintegrat 00:00: mouth [place] ing tablet 00 every 8 Medica l (eight) Branch hours as needed for Nausea and Vomiting (N/V). ondansetron 2021-0 Yes [id number] 4mg Take 1 Univers 4 mg 9-02 tablet by ity of disintegrat 00:00: mouth [place] ing tablet 00 every 8 Medica l (eight) Branch hours as needed for Nausea and Vomiting (N/V). ondansetron 2-0 Yes [id number] 4mg Take 1 Univers 4 mg 9-02 tablet by ity of disintegrat 00:00: mouth [place] ing tablet 00 every 8 Medica l (eight) Branch hours as needed for Nausea and Vomiting (N/V). ondansetron 2021-0 Yes [id number] 4mg Take 1 Univers 4 mg 9-02 tablet by ity of disintegrat 00:00: mouth [place] ing tablet 00 every 8 Medica l (eight) Branch hours as needed for Nausea and Vomiting (N/V). ondansetron 2-0 Yes [id number] 4mg Take 1 Univers 4 mg 9-02 tablet by ity of disintegrat 00:00: mouth [place] ing tablet 00 every 8 Medica l (eight) Branch hours as needed for Nausea and Vomiting (N/V). ondansetron 2-0 Yes [id number] 4mg Take 1 Univers 4 mg 9-02 tablet by ity of disintegrat 00:00: mouth [place] ing tablet 00 every 8 Medica l (eight) Branch hours as needed for Nausea and Vomiting (N/V). ondansetron 2-0 Yes [id number] 4mg Take 1 Univers 4 mg 9-02 tablet by ity of disintegrat 00:00: mouth [place] ing tablet 00 every 8 Medica l (eight) Branch hours as needed for Nausea and Vomiting (N/V). ondansetron 2021-0 Yes [id number] 4mg Take 1 Univers 4 mg 9-02 tablet by ity of disintegrat 00:00: mouth [place] ing tablet 00 every 8 Medica l (eight) Branch hours as needed for Nausea and Vomiting (N/V). NaCl 0.9% 2021- No 1000mL at 999 [...] On [place]i [place] mg Sat09/15/21 Branch at 0730, JOSE LUIS ibuprofen 2021-0 2021- No 600mg 600 mg, Uni vers (IBU) 09-15 Oral, ity of tablet 600 12:15: 12:15 ONCE, 1 [place] mg 00 :00 dose, On Medical 09/15/21 Branch at 0715, JOSE LUIS benzonatate 2021-0 2021- No 100mg 100 mg, U nivers (TESSALON 09-15 Oral, ity of PERLES) 12:15: 12:15 ONCE, 1 [place] capsule 100 00 :00 dose, On Medi [place] mg Sat09/15/21 Branch at 0715, JOSE LUIS benzonatate 2021-0 Yes [id number] 100mg Take 1 Univers 100 mg 09-15 capsule by ity of capsule 00:00: mouth 3 [place] 00 (three) Medical times Branch daily as needed for Cough. ondansetron 2021-0 Yes [id number] 4mg Take 1 Univers 4 mg 8-05 tablet by ity of disintegrat 00:00: mouth [place] ing tablet 00 every 8 Medica l (eight) Branch hours as needed for Nausea and Vomiting (N/V). Blood-Gluco 2-0 Yes [id number] Use as Univers se Meter 8-05 directed ity of (BLOOD 00:00: [place] GLUCOSE 00 Medical MONITORING) Branch Kit benzonatate 2021-0 Yes [id number] 100mg Take 1 Univers 100 mg 8-05 capsule by ity of capsule 00:00: mouth 3 [place] 00 (three) Medical times Branch daily as needed for Cough. Blood-Gluco 2021-0 Yes [id number] Use as Univers se Meter 8-05 directed ity of (BLOOD 00:00: [place] GLUCOSE 00 Medical MONITORING) Branch Kit benzonatate 2021-0 Yes [id number] 100mg Take 1 Univers 100 mg 8-05 capsule by ity of capsule 00:00: mouth 3 [place] 00 (three) Medical times Branch daily as needed for Cough. Blood-Gluco 2021-0 Yes [id number] Use as Univers se Meter 8-05 directed ity of (BLOOD 00:00: [place] GLUCOSE 00 Medical MONITORING) Branch Kit benzonatate 2021-0 Yes [id number] 100mg Take 1 Univers 100 mg 8-05 capsule by ity of capsule 00:00: mouth 3 [place] 00 (three) Medical times Branch daily as needed for Cough. Blood-Gluco 2-0 Yes [id number] Use as Univers se Meter 8-05 directed ity of (BLOOD 00:00: [place] GLUCOSE 00 Medical MONITORING) Branch Kit benzonatate 2-0 Yes [id number] 100mg Take 1 Univers 100 mg 8-05 capsule by ity of capsule 00:00: mouth 3 [place] 00 (three) Medical times Branch daily as needed for Cough. Blood-Gluco 2022-0 Yes [id number] Use as Univers se Meter 8-05 directed ity of (BLOOD 00:00: [place] GLUCOSE 00 Medical MONITORING) Branch Kit benzonatate 2-0 Yes [id number] 100mg Take 1 Univers 100 mg 8-05 capsule by ity of capsule 00:00: mouth 3 [place] 00 (three) Medical times Branch daily as needed for Cough. Blood-Gluco 2022-0 Yes [id number] Use as Univers se Meter 8-05 directed ity of (BLOOD 00:00: [place] GLUCOSE 00 Medical MONITORING) Branch Kit benzonatate 2021-0 Yes [id number] 100mg Take 1 Univers 100 mg 8-05 capsule by ity of capsule 00:00: mouth 3 (three) Medical times Branch daily as needed for Cough. Blood-Gluco 2021-0 Yes [id number] Use as Univers se Meter 8-05 directed ity of (BLOOD 00:00: [place] GLUCOSE 00 Medical MONITORING) Branch Kit benzonatate 2021-0 Yes [id number] 100mg Take 1 Univers 100 mg 8-05 capsule by ity of capsule 00:00: mouth 3 (three) Medical times Branch daily as needed for Cough. Blood-Gluco 2021-0 Yes [id number] Use as Univers se Meter 8-05 directed ity of (BLOOD 00:00: [place] GLUCOSE 00 Medical MONITORING) Branch Kit benzonatate 2021-0 Yes [id number] 100mg Take 1 Univers 100 mg 8-05 capsule by ity of capsule 00:00: mouth 3 (three) Medical times Branch daily as needed for Cough. Blood-Gluco 2021-0 Yes [id number] Use as Univers se Meter 8-05 directed ity of (BLOOD 00:00: [place] GLUCOSE 00 Medical MONITORING) Branch Kit benzonatate 2021-0 Yes [id number] 100mg Take 1 Univers 100 mg 8-05 capsule by ity of capsule 00:00: mouth 3 (three) Medical times Branch daily as needed for Cough. Blood-Gluco 2021-0 Yes [id number] Use as Univers se Meter 8-05 directed ity of (BLOOD 00:00: [place] GLUCOSE 00 Medical MONITORING) Branch Kit benzonatate 2021-0 Yes [id number] 100mg Take 1 Univers 100 mg 8-05 capsule by ity of capsule 00:00: mouth 3 (three) Medical times Branch daily as needed for Cough. Blood-Gluco 2021-0 Yes [id number] Use as Univers se Meter 8-05 directed ity of (BLOOD 00:00: [place] GLUCOSE 00 Medical MONITORING) Branch Kit ondansetron 2021-0 2022- No [id number] 4mg Take 1 Univers 4 mg 8-05 10-13 tablet by ity of disintegrat 00:00: 00:00 mouth [place] ing tablet 00 :00 every 8 Medica l (eight) Branch hours as needed for Nausea and Vomiting (N/V). ondansetron 2021-2021- No [id number] 4mg Take 1 Univers 4 mg 09-15-05 tablet by ity of disintegrat 00:00: 00:00 mouth [place] ing tablet 00 :00 every 8 Medica l (eight) Branch hours as needed for Nausea and Vomiting (N/V). benzonatate 2021-2021- No [id number] 100mg Take 1 Univers 100 mg 8-05 capsule by ity of capsule 00:00: 00:00 mouth 3 [place] 00 :00 (three) Medical times Branch daily as needed for Cough. QUEtiapine 2021-0 Yes TAKE 1 Unive rs 100 mg 7-12 TABLET BY ity of tablet 00:00: MOUTH 00 EVERY Medical NIGHT AT Branch BEDTIME FOR MOOD QUEtiapine 2-0 Yes TAKE 1 Unive rs 100 mg 7-12 TABLET BY ity of tablet 00:00: 00 EVERY Medical NIGHT AT Branch BEDTIME [...] 7-12 TABLET BY ity of tablet 00:00: 00 EVERY Medical NIGHT AT Branch BEDTIME [...] TABLET BY ity of tablet 00:00: MOUTH [place] 00 EVERY Medical NIGHT AT Branch BEDTIME FOR MOOD QUEtiapine 2022-0 Yes TAKE 1 Unive rs 100 mg 7-12 TABLET BY ity of tablet 00:00: MOUTH [place] 00 EVERY Medical NIGHT AT Branch BEDTIME FOR MOOD QUEtiapine 2022-0 Yes TAKE 1 Unive rs 100 mg 7-12 TABLET BY ity of tablet 00:00: MOUTH [place] 00 EVERY Medical NIGHT AT Branch BEDTIME FOR MOOD QUEtiapine 2022-0 Yes TAKE 1 Unive rs 100 mg 7-12 TABLET BY ity of tablet 00:00: MOUTH [place] 00 EVERY Medical NIGHT AT Branch BEDTIME FOR MOOD QUEtiapine 2022-0 Yes TAKE 1 Unive rs 100 mg 7-12 TABLET BY ity of tablet 00:00: MOUTH [place] 00 EVERY Medical NIGHT AT Branch BEDTIME FOR MOOD ibuprofen 2022-0 Yes [id number] 800mg Take 1 Univers 800 mg 6-27 tablet by ity of tablet 00:00: mouth [place] 00 every 8 Medical (eight) Branch hours as needed for Pain (scale 4-6). ibuprofen 2022-0 Yes [id number] 800mg Take 1 Univers 800 mg 6-27 tablet by ity of tablet 00:00: mouth [place] 00 every 8 Medical (eight) Branch hours as needed for Pain (scale 4-6). ibuprofen 2022-0 Yes [id number] 800mg Take 1 Univers 800 mg 6-27 tablet by ity of tablet 00:00: mouth [place] 00 every 8 Medical (eight) Branch hours as needed for Pain (scale 4-6). ibuprofen 2022-0 Yes [id number] 800mg Take 1 Univers 800 mg 6-27 tablet by ity of tablet 00:00: mouth [place] 00 every 8 Medical (eight) Branch hours as needed for Pain (scale 4-6). ibuprofen 2022-0 Yes [id number] 800mg Take 1 Univers 800 mg 6-27 tablet by ity of tablet 00:00: mouth [place] 00 every 8 Medical (eight) Branch hours as needed for Pain (scale 4-6). ibuprofen 2022-0 Yes [id number] 800mg Take 1 Univers 800 mg 6-27 tablet by ity of tablet 00:00: mouth [place] 00 every 8 Medical (eight) Branch hours as needed for Pain (scale 4-6). ibuprofen 2022-0 Yes [id number] 800mg Take 1 Univers 800 mg 6-27 tablet by ity of tablet 00:00: mouth [place] 00 every 8 Medical (eight) Branch hours as needed for Pain (scale 4-6). ibuprofen 2022-0 Yes [id number] 800mg Take 1 Univers 800 mg 6-27 tablet by ity of tablet 00:00: mouth [place] 00 every 8 Medical (eight) Branch hours as needed for Pain (scale 4-6). ibuprofen 2022-0 Yes [id number] 800mg Take 1 Univers 800 mg 6-27 tablet by ity of tablet 00:00: mouth [place] 00 every 8 Medical (eight) Branch hours as needed for Pain (scale 4-6). ibuprofen 2021-0 Yes [id number] 800mg Take 1 Univers 800 mg 6-27 tablet by ity of tablet 00:00: mouth [place] 00 every 8 Medical (eight) Branch hours as needed for Pain (scale 4-6). ibuprofen 2021-0 Yes [id number] 800mg Take 1 Univers 800 mg 6-27 tablet by ity of tablet 00:00: mouth [place] 00 every 8 Medical (eight) Branch hours as needed for Pain (scale 4-6). ibuprofen 2021-0 Yes [id number] 800mg Take 1 Univers 800 mg 6-27 tablet by ity of tablet 00:00: mouth [place] 00 every 8 Medical (eight) Branch hours as needed for Pain (scale 4-6). ibuprofen 2021-0 Yes [id number] 800mg Take 1 Univers 800 mg 6-27 [...] daily U-100 before INSULN SC) meals. insulin 2-0 Yes 30U inject 30 Unive rs glargine,hu [...] as needed Medical for Branch Insomnia. insulin 0 Yes inject Univers aspart 4-25 under the ity of prot/insuln 00:30: skin 3 [place] asp 14 (three) Medical (NOVOLOG times Branch MIX 70-30 daily U-100 before INSULN SC) meals. insulin 0 Yes 30U inject 30 Unive rs glargine,hu 4-25 Units ity of m.rec.anlog 00:30: under the [place] (LANTUS SC) 14 skin 2 Medica l (two) Branch times daily. zolpidem 0 Yes 10mg Take 10 mg Uni vers (AMBIEN) 10 4-25 by mouth ity of mg tablet 00:30: at bedtime [place] 14 as needed Medical for Branch Insomnia. insulin 0 Yes inject Univers aspart 4-25 under the ity of prot/insuln 00:30: skin 3 [place] asp 14 (three) Medical (NOVOLOG times Branch MIX 70-30 daily U-100 before INSULN SC) meals. zolpidem 2021-0 Yes 10mg Take 10 mg Uni vers (AMBIEN) 10 4-25 by mouth ity of mg tablet 00:30: at bedtime [place] 14 as needed Medical for Branch Insomnia. insulin 0 Yes inject Univers aspart 4-25 under the ity of prot/insuln 00:30: skin 3 [place] asp 14 (three) Medical (NOVOLOG times Branch MIX 70-30 daily U-100 before INSULN SC) meals. zolpidem 2021-0 Yes 10mg Take 10 mg Uni vers (AMBIEN) 10 4-25 by mouth ity of mg tablet 00:30: at bedtime [place] 14 as needed Medical for Branch Insomnia. insulin 0 Yes inject Univers aspart 4-25 under the ity of prot/insuln 00:30: skin 3 [place] asp 14 (three) Medical (NOVOLOG times Branch MIX 70-30 daily U-100 before INSULN SC) meals. zolpidem 2021-0 Yes 10mg Take 10 mg [...] Time Observation Value Comments Source Systolic blood 2022-01-13 13:30:29 142 mm[Hg] Univer sity [facility] Diastolic blood 2022-01-13 13:30:29 94 [facility]22-[facility]-13 13:30:29 100 /min [facility] Body temperature 2022-01-13 13:30:29 36.72 [place] [facility] Respiratory rate 2022-01-13 13:30:29 16 /min [facility] Body height 2022-01-13 13:14:00 165.1 cm [facility] Body weight 2022-01-13 13:14:00 86.183 kg [facility] BMI 2022-01-13 13:14:00 31.62 kg/m2 [facility] Oxygen saturation in 2022-01-13 13:14:00 98 /min [facility] Arterial blood by [facility] Pulse oximetry [place] Systolic blood 2022-01-07 18:18:00 129 mm[Hg] Univer sity [facility] Diastolic blood 2022-01-07 18:18:00 105 mm[facility]Hg] [facility] 2022-01-07 18:18:00 127 /min [facility] [place] [facility] Body temperature 2022-01-07 18:18:00 37.17 [place] [facility] [place] [facility] Respiratory rate 2022-01-07 18:18:00 16 /min [facility] [place] [facility] Body height 2022-01-07 18:18:00 165.1 cm [facility] [place] [facility] Body weight 2022-01-07 18:18:00 84.823 kg [facility] [place] [facility] BMI 2022-01-07 18:18:00 31.12 kg/m2 [facility] [place] [facility] Oxygen saturation in 2022-01-07 18:18:00 96 /min University of Arterial blood by [place] [employer] [place] Pulse oximetry Branch Systolic blood 2021-12-26 21:51:00 140 mm[Hg] Univer sity of pressure [place] [facility] Diastolic blood 2021-12-26 21:51:00 107 mm[Hg] Unive rsity of pressure [place] [facility] Branch Heart rate 2021-12-26 21:51:00 108 /min [facility] [place] [facility] Body temperature 2021-12-26 21:51:00 36.56 [place] [facility] [place] [facility] Respiratory rate 2021-12-26 21:51:00 18 /min [facility] [place] [facility] Body height 2021-12-26 21:51:00 165.1 cm [facility] Body weight 2021-12-26 21:51:00 86.183 kg [facility] [place] [facility] BMI 2021-12-26 21:51:00 31.62 kg/m2 [facility] [place] [facility] Oxygen saturation in 2021-12-26 21:51:00 96 /min [facility] Arterial blood by [place] [employer] Pulse oximetry Branch Systolic blood 2021-12-03 03:00:00 126 mm[Hg] [facility] [place] [facility] Diastolic blood 2021-12-03 03:00:00 82 mm[Hg] [facility] [place] [facility] Heart rate 2021-12-03 03:00:00 110 /min [facility] [place] [facility] Respiratory rate 2021-12-03 03:00:00 20 /min [facility] [place] [facility] Oxygen saturation in 2021-12-03 03:00:00 97 /min [facility] Arterial blood by [place] [employer] Pulse oximetry Branch Body temperature 2021-12-03 00:52:00 37.22 [place] [facility] [place] [facility] Body height 2021-12-03 00:52:00 165.1 cm [facility] [place] [facility] Body weight 2021-12-03 00:52:00 86.183 kg [facility] [place] [facility] BMI 2021-12-03 00:52:00 31.62 kg/m2 [facility] [place] [facility] Systolic blood 2021-11-08 20:00:00 138 mm[Hg] [facility] [place] [facility] Diastolic blood 2021-11-08 20:00:00 95 mm[Hg] [facility] [place] [facility] Heart rate 2021-11-08 20:00:00 96 /min [facility] [place] [facility] Body temperature 2021-11-08 20:00:00 36.39 [place] [facility] Respiratory rate 2021-11-08 20:00:00 16 /min [facility] Oxygen saturation in 2021-11-08 20:00:00 95 /min [facility] Arterial blood by [place] [employer] Pulse oximetry Branch Body height 2021-11-08 15:54:00 165.1 cm [facility] [place] [facility] Body weight 2021-11-08 15:54:00 86.183 kg [facility] [place] [facility] BMI 2021-11-08 15:54:00 31.62 kg/m2 [facility] [place] [facility] Systolic blood 2021-10-16 23:46:35 124 mm[Hg] [facility] [place] [facility] Diastolic blood 2021-10-16 23:46:35 97 mm[Hg] [facility] [place] [facility] Heart rate 2021-10-16 23:46:35 118 /min [facility] [place] [facility] Body temperature 2021-10-16 23:46:35 36.72 [place] [facility] [place] [facility] Respiratory rate 2021-10-16 23:46:35 20 /min [facility] [place] [facility] Body height 2021-10-16 23:42:00 165.1 cm [facility] [place] [facility] Body weight 2021-10-16 23:42:00 86.183 kg [facility] [place] [facility] BMI 2021-10-16 23:42:00 31.62 kg/m2 [facility] [place] [facility] Oxygen saturation in 2021-10-16 23:42:00 98 /min [facility] Arterial blood by [facility] Pulse oximetry Branch Systolic blood 2021-10-13 20:00:43 135 mm[Hg] [facility] [place] [facility] Diastolic blood 2021-10-13 20:00:43 100 mm[Hg] [facility] [place] [facility] Heart rate 2021-10-13 20:00:43 92 /min [facility] [place] [facility] Respiratory rate 2021-10-13 20:00:43 16 /min [facility] [place] [facility] Oxygen saturation in 2021-10-13 20:00:43 99 /min [facility] Arterial blood by [facility] Pulse oximetry Branch Body temperature 2021-10-13 17:22:00 36.72 [place] [facility] [place] [facility] Body height 2021-10-13 17:22:00 165.1 cm [facility] [place] [facility] Body weight 2021-10-13 17:22:00 86.183 kg [facility] [place] [facility] BMI 2021-10-13 17:22:00 31.62 kg/m2 [facility] [place] [facility] Systolic blood 2021-09-15 13:14:00 136 mm[Hg] [facility] [place] [facility] Diastolic blood 2021-09-15 13:14:00 91 mm[Hg] [facility] [place] [facility] Heart rate 2021-09-15 13:14:00 86 /min [facility] [place] [facility] Respiratory rate 2021-09-15 13:14:00 16 /min [facility] [place] [facility] Oxygen saturation in 2021-09-15 13:14:00 97 /min [facility] Arterial blood by [facility] Pulse oximetry Branch Body temperature 2021-09-15 11:48:00 36.61 [place] [facility] [place] [facility] Body height 2021-09-15 11:46:00 160 cm [facility] [place] [facility] Body weight 2021-09-15 11:46:00 90.719 kg [facility] [place] [facility] BMI 2021-09-15 11:46:00 35.43 kg/m2 Universi [facility] Systolic blood 2021-09-12 15:05:00 116 mm[Hg] Univer sity of pressure [facility] Diastolic blood 2021-09-12 15:05:00 80 mm[Hg] Unive rsity of pressure [facility] Heart rate 2021-09-12 15:05:00 106 /min [facility] Body temperature 2021-09-12 15:05:00 37.11 [place] [facility] Res[facility] rate 2021-09-12 15:05:00 16 /min [facility] Body height 2021-09-12 15:05:00 160 cm [facility] Body weight 2021-09-12 15:05:00 87 kg [facility] BMI 2021-09-12 15:05:00 33.98 kg/m2 [facility] Oxygen saturation in 2021-09-12 15:05:00 98 /min [facility] Arterial blood by [facility] Pulse oximetry Branch Procedures Procedure Date / Time Performed Performing Clinician [facility] e COMP. METABOLIC PANEL 2022-01-13 13:40:00 Angelia Carver [facility] ([id number]) [facility] CBC WITH DIFF 2022-01-13 13:40:00 Angelia Carver [facility] COMP. METABOLIC PANEL 2022-01-07 19:06:00 Srini Gordon [facility] ([id number]) [facility] URINALYSIS 2022-01-07 19:06:00 Sirni Gordon [place] [facility] RAPID INFLUENZA A/B 2022-01-07 19:06:00 Srini Gordon [facility] LACTIC ACID WHOLE 2022-01-07 19:06:00 Srini Gordon [facility] BLOOD [facility] CONSENT/REFUSAL FOR 2022-01-07 18:12:45 Doctor Unassigned, No Un [facility] DIAGNOSIS AND Name Medical Branch TREATMENT CT ABDOMEN PELVIS WO 2021-12-26 22:47:51 Carol Bauman [facility] CONTRAST [facility] POCT TEST 2021-12-26 22:05:00 Carol Bauman [facility] COMP. METABOLIC PANEL 2021-12-26 22:01:00 Carol Bauman [facility] ([id number]) Medical Branch CBC WITH DIFF 2021-12-26 22:01:00 [facility] 2021-12-26 22:01:00 Scott [facility] CONSENT/REFUSAL FOR 2021-12-26 21:14:06 Doctor Unassigned, No Un [facility] DIAGNOSIS AND Name Medical Branch TREATMENT POCT GLUCOSE 2021-12-03 03:36:00 [facility] POCT GLUCOSE(AGE 2021-12-03 02:59:00 Carmen Barr [facility] >30DAYS) [facility] POCT GLUCOSE 2021-12-03 02:58:00 Carmen Barr [facility] (AUTOMATED) [facility] XR CHEST 1 VW 2021-12-03 02:10:00 Carmen Barr [facility] D-DIMER 2021-12-03 01:49:00 Carmen Barr [facility] AC PANEL 21 + LACTIC 2021-12-03 01:06:00 Carmen Barr [facility] ACID [facility] LIPASE 2021-12-03 01:04:00 Carmen Barr [facility] MAGNESIUM 2021-12-03 01:04:00 Carmen Barr [facility] TROPONIN I 2021-12-03 01:04:00 [facility] MET[facility]OLIC PANEL 2021-12-03 01:04:00 Carmen Barr [facility] ([id number]) Medical Branch CBC WITH DIFF 2021-12-03 01:04:00 Carmen Barr [facility] URINALYSIS 2021-12-03 01:04:00 Carmen Barr [facility] POCT GLUCOSE(AGE 2021-12-03 01:03:00 Carmen Barr [facility] >30DAYS) Medical Branch POCT GLUCOSE 2021-12-03 01:00:00 Carmen Barr [facility] (AUTOMATED) Medical Branch CONSENT/REFUSAL FOR 2021-12-03 00:38:22 Doctor Unassigned, No [facility] [place] DI[facility] AND Name [facility] [place] TREATMENT COMP. METABOLIC PANEL 2021-11-08 19:42:00 Carol Bauman [facility] ([id number]) Medical Branch CBC WITH DIFF 2021-11-08 17:14:00 Shannen Baumananne [facility] URINALYSIS 2021-11-08 17:14:00 [facility] 2021-11-08 17:13:00 Carol Bauman [facility] CONSENT/REFUSAL FOR 2021-11-08 15:40:23 [facility] TREATMENT COVID-19 (ID NOW RAPID 2021-10-17 00:21:00 Cong Chun [facility] TESTING) Medical Branch POCT TEST 2021-10-17 00:17:00 Cong Chun [facility] Branch LIPASE 2021-10-17 00:13:00 Cong Chun [facility] HEPATIC FUNCTION PANEL 2021-10-17 00:13:00 Cong Chun [facility] ([id number]) [facility] [place] (ALB,T.PRO,BILI T,BU/BC,ALT,AST,ALK PHOS) BASIC METABOLIC PANEL 2021-10-17 00:13:00 Cong Chun [facility] (NA, K, CL, CO2, Medical Branch GLUCOSE, BUN, CREATININE, CA) CBC WITH DIFF 2021-10-17 00:13:00 Cong Chun [facility] URINALYSIS 2021-10-17 00:13:00 Cong Chun [facility] NOTICE OF PRIVACY 2021-10-16 23:40:19 Doctor Unassigned, No [facility] PRACTICES Name Medical [place] CONSENT/REFUSAL FOR 2021-10-16 23:38:52 Doctor Unassigned, No Un [facility] [place] DIAGNOSIS AND Name Medical Branch TREATMENT URINALYSIS 2021-10-13 18:40:00 Raine Reese [facility] Medical Branch COMP. METABOLIC PANEL 2021-10-13 17:48:00 Raine Reese [facility] ([id number]) Medical Branch CBC WITH DIFF 2021-10-13 17:48:00 [facility] POCT GLUCOSE 2021-10-13 17:37:00 [facility] (AUTOMATED) Medical Branch CONSENT/REFUSAL FOR 2021-10-13 17:16:22 Doctor Unassigned, No [facility] AND Name Medical Branch TREATMENT VBG+VCOOX+NA+K+GLU+CA2 2021-09-15 12:39:00 Srini Gordon [facility] + Medical Branch URINALYSIS 2021-09-15 12:36:00 Singer [facility] Branch RAPID STREP SCREEN FOR 2021-09-15 12:31:00 Srini Gordon [facility] GROUP A Medical Branch RAPID INFLUENZA A/B 2021-09-15 12:31:00 Srini Gordon [facility] Medical Branch COVID-19 (ID NOW RAPID 2021-09-15 12:31:00 Srini Gordon [facility] TESTING) Medical Branch COMP. METABOLIC PANEL 2021-09-15 12:27:00 Srini Gordon [facility] ([id number]) Medical Branch CBC WITH DIFF 2021-09-15 12:27:00 [facility] Branch POCT GLUCOSE 2021-09-15 11:54:00 Doctor Unassigned, No [facility] (AUTOMATED) Name Medical Branch CONSENT/REFUSAL FOR 2021-09-15 11:41:54 Doctor Unassigned, No [facility] AND Name Medical Branch TREATMENT POCT SARS-COV-2 2021-09-12 15:17:00 Anastasia Trimble [facility] ANTIGEN (BINAX NOW) Medical Bran ch Encounters Start End Encounter Admission Attending Care Care Encounter Source Date/Time Date/Time Type Type Clinicians Facility Department ID 2022-01-132022-01-13 Emergency X [facility] ERT [id number] Univers 07:12:00 08:39:00 ANGELIA gardner [facility] 2022-01-13 2022-01-13 [facility] [id number] Univers 07:12:00 08:39:00 Angelia Danielle ALINA [id number] ity of [place] 4.2.7.2.686 [facility] [phone] [address] 2022-01-07 2022-01-07 Emergency X [facility] ERT [id number] Univers 12:21:00 14:08:00 SRINI gardner [facility] 2022-01-07 2022-01-07 [facility] [id number] Univers 12:21:00 14:08:00 Srini ALINA 350.1.13.10 i ty [facility] 4.2.7.2.686 [facility] [id number] [address] 2022-01-01 2022-01-01 Telephone BlakeDIONNABarron [id number] Univers 00:00:00 00:00:00 Martha BRANHAM 350.1.13.10 i ty of [place] 4.2.7.2.686 [facility] [id number] [address] 2021-12-26 2021-12-26 Emergency X SCOTT, [facility] ERT [id number] Univers 15:49:00 21:17:00 CAROL gardner [facility] 2021-12-26 2021-12-26 Emergency Scott, [facility] [id number] Univers 15:49:00 21:17:00 Carol FULLER 350.1.13.10 i ty of [place] 4.2.7.2.686 [facility] [id number] [address] 2021-12-02 2021-12-02 Emergency Carmen Barr [facility] 1.2.840.114 [id number] Univers 19:43:00 22:54:00 Vicki FULLER 350.1.13.10 i ty of [place] 4.2.7.2.686 [facility] [id number] [place] 710054 [place] 2021-12-02 2021-12-02 Emergency X Carmen BARR [facility] ERT [id number] Univers 19:43:00 22:54:00 ity of [facility] 2021-11-08 2021-11-08 Emergency X SCOTT, [facility] ERT [id number] Univers 10:57:00 15:20:00 CAROL ity [facility] 2021-11-08 2021-11-08 Emergency Scott, [facility] 1.2.840.114 [id number] Univers 10:57:00 15:20:00 Carol MARYBENITO 350.1.13.10 i ty of [place] 4.2.7.2.686 [facility] [id number] [address] 2021-11-08 2021-11-08 Orders Doctor WARNER 1.2.840.114 [id number] Univers 00:00:00 00:00:00 Only Unassigned, CASEY 350.1.13.10 ity of [facility] 4.2.7.2.686 Riccardo as [id number] [facility] 009 Branch 2021-10-16 2021-10-16 Emergency [facility] [id number] Univers 18:43:00 20:01:00 CONG ity [facility] 2021-10-16 2021-10-16 Emergency [facility] [id number] Univers 18:43:00 20:01:00 Cong UFLLER 350.1.13.10 i ty of [place] 4.2.7.2.686 [facility] [id number] [facility] 084 [place] 2021-10-16 2021-10-16 ALANA Mittal [id number] Univers 00:00:00 00:00:00 (Out) Wild JENKINSY 350.1.13.10 it y of [facility] 4.2.7.2.686 [place]card[place] as [id number] [facility] 019 Branch 2021-10-13 2021-10-13 Emergency [facility] ERT [id number] Univers 12:24:00 15:04:00 RAINE bill [facility] 2021-10-13 2021-10-13 Emergency [facility] [id number] Univers 12:24:00 15:04:00 Raine FULLER 350.1.13.10 i ty of [facility] 4.2.7.2.686 [facility] [id number] [address] 2021-09-25 2021-09-25 Outpatient R CATHY [facility] [id number] Univers 15:00:00 15:00:00 ANDRES bill [facility] 2021-09-15 2021-09-15 Emergency [facility]RT [id number] Univers 06:56:00 09:12:00 SRINI bill [facility] 2021-09-15 2021-09-15 Emergency [facility] 1.2.735.509 [id number] Univers 06:56:00 09:12:00 Srini FULLER 350.1.13.10 i ty of [facility] 4.2.7.2.686 [facility] [id number] [address] 2021-09-13 2021-09-13 Letter OnlyErasmo [facility] [id number] Univers 00:00:00 00:00:00 (Out) Db Test HEALTH 350.1.13.10 it y of [place] 4.2.7.2.686 Riccardo as MARIE?BLEA [id number] [address] OFFICE [facility] 2021-09-12 2021-09-12 Urgent [facility] 1.2.840.114 [id number] Univers 10:20:00 10:39:27 Care Anastasia HEALTH 350.1.13.10 it y of [place] 4.2.7.2.686 [place]card[place] as MARIE?BLEA [id number] [address] OFFICE [facility] 2021-09-12 2021-09-12 [facility] [id number] Univers 10:20:00 10:39:27 ANASTASIA [facility] 2021-09-12 2021-09-12 Outpatient R TIM [facility] [id number] Univers 10:20:00 10:20:00 ANASTASIA ity of [facility] 2021-09-12 2021-09-12 Orders Doctor ALANA 1.2.840.114 [id number] Univers 00:00:00 00:00:00 Only Unassigned, CASEY 350.1.13.10 ity of [place] [facility] 4.2.7.2.686 [place]card[place] as [id number] [facility] 009 Branch 2021-09-01 2021-09-01 Emergency X AUFDERIDE [facility] ERT [id number] Univers 20:11:00 22:44:00 , LASHONDA ity [facility] 2021-09-01 2021-09-01 [facility] 1.2.840.114 [id number] Univers 20:11:00 22:44:00 , Lashonda FULLER 350.1.13.10 i ty of [place]2.[place] [id number] [facility] 084 Branch 2021-07-17 2021-07-17 Nurse ALANA Serrano 1.2.840.114 [id number] Univers 00:00:00 00:00:00 Triage Audrey PEÑA 350.1.13.10 it y of [facility] 4.2.7.2.686 [place] as [id number] [facility] 019 Branch 2021-06-06 2021-06-06 Transition PAM [place] 1.2.840.114 [id number] Univers 00:00:00 00:00:00 of Care Jenna YONAS 350.1.13.10 [place]2.[place] [phone] [facility] 403 Branch 2021-06-04 2021-06-04 Outpatient X MORENITA [facility] JORDYN [id number] Univers 07:20:00 20:17:00 BLAYNE ity of [facility] 2021-06-04 2021-06-04 Hospital Saulo Wolf 1.2.840.1 [id number] Univers 07:20:00 20:17:00 Encounter Don Blevins CASEY 350.1.13. 10 ity of [facility] 4.2.7.2.68 6 [place] [phone] [place] [id number] Branch Results Test Description Test Time Test Comments Results Result Comments Source COMP. METABOLIC PANEL (20506) 2022-01-13 14:25:36 Test Item Value Reference Range Interpretation Comme nts NA (test code = 3138541625) 133 mmol/L 135-145 L K (test code = 4758260230) 4.3 mmol/L 3.5-5.0 CL (test code = 2917969565) 105 mmol/L 98-108 CO2 TOTAL (test code = 2731661040) 16 mmol/L 23-31 L AGAP (test code = 0271619012) 2-16 BUN (test code = 2653263807) 12 mg/dL 7-23 GLUCOSE (test code = 9309479598) 276 mg/dL 70-110 H CREATININE (test code = 0.58 mg/dL 0.50-1.04 9926116146) TOTAL BILI (test code = 0.8 mg/dL 0.1-1.2 7482231028) CALCIUM (test code = 5407247206) 8.6 mg/dL 8.6-10.6 T PROTEIN (test code = 1470578557) 7.0 g/dL 6.3-8.2 ALBUMIN (test code = 3646052346) 3.9 g/dL 3.5-5.0 ALK PHOS (test code = 6832364215) 94 U/L 34-122 ALTv (test code = 1742-6) 27 U/L 5-35 AST(SGOT) (test code = 9005303746) 30 U/L 13-40 eGFR (test code = 9804832269) mL/min/1.73m2 ANTOINE (test code = ANTOINE) Association [...] tests). Lab Interpretation (test code = Abnormal 74183-8) [facility] WITH [id number] 14:17:58 Test Item Value Reference Range Interpretation Comments WBC (test code = See_Comment [Automated 4590-2) message] The sy stem which generated this result transmitted reference range : 4.30 - 11.10 10*3/?L. The reference range was not used to interpret this result as normal/abnormal . RBC (test code = See_Comment [Automated 309-8) message] The sy stem which generated this result transmitted reference range : 3.93 - 5.25 10*6/?L. The reference range was not used to interpret this result as normal/abnormal . HGB (test code = 13.6 g/dL 11.6-15.0 718-7) HCT (test code = 36.6 % 35.7-45.2 4544-3) MCV (test code = 87.4 fL 80.6-95.5 787-2) MCH (test code = 32.5 pg 25.9-32.8 785-6) MCHC (test code = 37.2 g/dL 31.6-35.1 H 786-4) RDW-SD (test code = 41.0 fL 39.0-49.9 41261-5) RDW-CV (test code = 13.1 % 12.0-15.5 788-0) PLT (test code = See_Comment [Automated 777-3) message] The sy stem which generated this result transmitted reference range : 166 - 358 10*3/ ?L. The reference r shayla was not used to interpret this result as normal/abnormal . MPV (test code = 10.3 fL 9.5-12.9 89338-1) NRBC/100 WBC (test See_Comment [Automat ed code = 1079488152) message] The system which generated this result transmitted reference range : 0.0 - 10.0 /100 WBCs. The refer ence range was not u sed to interpret th is result as normal/abnormal . NRBC x10^3 (test code See_Comment [Auto mated = 3227417675) message] The s ystem which generated this result transmitted reference range : 10*3/?L. The reference range was not used to interpret this result as normal/abnormal . GRAN MAT (NEUT) % 61.0 % (test code = 770-8) IMM GRAN % (test code 0.30 % = 5951511049) LYMPH % (test code = 26.7 % 736-9) MONO % (test code = 5.9 % 5905-5) EOS % (test code = 5.4 % 713-8) BASO % (test code = 0.7 % 706-2) GRAN MAT x10^3(ANC) 5.57 10*3/uL 1.88-7.09 (test code = 0048737524) IMM GRAN x10^3 (test 0.03 10*3/uL 0.00-0.06 code = 9089078039) LYMPH x10^3 (test code 2.44 10*3/uL 1.32-3.29 = 731-0) MONO x10^3 (test code 0.54 10*3/uL 0.33-0.92 = 742-7) EOS x10^3 (test code = 0.49 10*3/uL 0.03-0.39 H 711-2) BASO x10^3 (test code 0.06 10*3/uL 0.01-0.07 = 704-7) Lab Interpretation Abnormal (test code = 15978-0) [facility]. METABOLIC PANEL (07907)2022-01-07 19:33:08 Test Item Value Reference Range Interpretation Comments NA (test code = 132 mmol/L 135-145 L 7843665232) K (test code = 4.7 mmol/L 3.5-5.0 1491696369) CL (test code = 102 mmol/L 98-108 3261211391) CO2 TOTAL (test code = 16 mmol/L 23-31 L 8729295876) AGAP (test code = 2-16 4646415920) BUN (test code = 9 mg/dL 7-23 1286406781) GLUCOSE (test code = 332 mg/dL 70-110 H 3504014810) CREATININE (test code = 0.68 mg/dL 0.50-1.04 6592320796) TOTAL BILI (test code = 0.7 mg/dL 0.1-1.9 1349199025) CALCIUM (test code = 8.7 mg/dL 8.6-10.6 8023297050) T PROTEIN (test code = 7.1 g/dL 6.3-8.2 5565161342) ALBUMIN (test code = 3.8 g/dL 3.5-5.0 8121285078) ALK PHOS (test code = 97 U/L 34-122 2377815580) ALTv (test code = 24 U/L 5-35 1742-6) AST(SGOT) (test code = 22 U/L 13-40 2390443284) eGFR (test code = mL/min/1.73m2 4614313993) ANTOINE (test code = ANTOINE) Association of [...] tests). Lab Interpretation Abnormal (test code = 02513-7) [facility] Whole [id number] 19:29:08 Test Item Value Reference Range Interpretation Comments LACTIC ACID (test code = 3.00 mmol/L 0.50-2.20 H 1795417368) Lab Interpretation (test code = Abnormal 77487-0) [facility] WITH [id number] 00:28:02 Test Item Value Reference Range Interpretation Comments WBC (test code = See_Comment H [Automated 6690-2) message] The sy stem which generated this result transmitted reference range : 4.30 - 11.10 10*3/?L. The reference range was not used to interpret this result as normal/abnormal . RBC (test code = See_Comment H [Automated 109-8) message] The sy stem which generated this [...] RDW-SD (test code = 40.3 fL 39.0-49.9 03283-3) RDW-CV (test code = 13.1 % 12.0-15.5 788-0) PLT (test code = See_Comment [Automated 777-3) message] The sy stem which generated this result transmitted reference range : 166 - 358 10*3/ ?L. The reference r shayla was not used to interpret this result as normal/abnormal . MPV (test code = 10.6 fL 9.5-12.9 86756-9) IPF % (test code = 1.5 % 1.3-7.7 Platelet count 3083074718) measured by fluorescence method. NRBC/100 WBC (test See_Comment [Automat ed code = 5554879980) message] The system which generated this result transmitted reference range : 0.0 - 10.0 /100 WBCs. The refer ence range was not u sed to interpret th is result as normal/abnormal . NRBC x10^3 (test code See_Comment [Auto mated = 3016650837) message] The s ystem which generated this result transmitted reference range : 10*3/?L. The reference range was not used to interpret this result as normal/abnormal . GRAN MAT (NEUT) % 69.5 % (test code = 770-8) IMM GRAN % (test code 0.90 % = 3477317777) LYMPH % (test code = 20.0 % 736-9) MONO % (test code = 5.0 % 5905-5) EOS % (test code = 3.9 % 713-8) BASO % (test code = 0.7 % 706-2) GRAN MAT x10^3(ANC) 8.40 10*3/uL 1.88-7.09 H (test code = 9997138225) IMM GRAN x10^3 (test 0.11 10*3/uL 0.00-0.06 H code = 0428669813) LYMPH x10^3 (test code 2.42 10*3/uL 1.32-3.29 = 731-0) MONO x10^3 (test code 0.60 10*3/uL 0.33-0.92 = 742-7) EOS x10^3 (test code = 0.47 10*3/uL 0.03-0.39 H 711-2) BASO x10^3 (test code 0.09 10*3/uL 0.01-0.07 H = 704-7) Lab Interpretation Abnormal (test code = 47650-9) [facility]. METABOLIC PANEL (18660)2021-12-26 22:45:51 Test Item Value Reference Range Interpretation Comments NA (test code = 131 mmol/L 135-145 L 0767700326) K (test code = 4.4 mmol/L 3.5-5.0 7195756322) CL (test code = 101 mmol/L 98-108 0173466925) CO2 TOTAL (test code = 17 mmol/L 23-31 L 6954681246) AGAP (test code = 2-16 2166589544) BUN (test code = 7 mg/dL 7-23 3476236079) GLUCOSE (test code = 292 mg/dL 70-110 H 1296945627) CREATININE (test code = 0.62 mg/dL 0.50-1.04 4849232379) TOTAL BILI (test code = 0.6 mg/dL 0.1-1.9 7509553665) CALCIUM (test code = 8.7 mg/dL 8.6-10.6 9165751479) T PROTEIN (test code = 7.3 g/dL 6.3-8.2 3010309066) ALBUMIN (test code = 3.9 g/dL 3.5-5.0 4724500526) ALK PHOS (test code = 97 U/L 34-122 9700933863) ALTv (test code = 28 U/L 5-35 1742-6) AST(SGOT) (test code = 27 U/L 13-40 9729970507) eGFR (test code = mL/min/1.73m2 9800379442) ANTOINE (test code = ANTOINE) Association of [...] tests). Lab Interpretation Abnormal (test code = 13552-4) [facility] [id number] 22:05:00 Test Item Value Reference Range Interpretation Comments POCT PREG (test code = 1605) negative On board controls acceptable with present C Line (test code = 3574) POCT PREG LOT # (test code = 3575) [id number] POCT PREG TEST DATE (test 04/10/22 code = 3576) Lab Interpretation (test code = Normal 98674-0) [facility] GLUCOSE (AUTOMATED)2021-12-03 03:40:11 Test Item Value Reference Range Interpretation Comments POCT GLU (test code = 5646948529) 250 mg/dL 70-110 H Lab Interpretation (test code = Abnormal 61733-0) [id number] 03:24:04 Test Item Value Reference Interpretation Comments Range D-DIMER (test code = See_Comment [Autom ated 1778788792) message] The system which generated this result [...] diagnosis. Lab Interpretation Normal (test code = 37555-5) [facility] GLUCOSE (AUTOMATED)2021-12-03 03:03:40 Test Item Value Reference Range Interpretation Comments POCT GLU (test code = 5770169312) 414 mg/dL 70-110 H Lab Interpretation (test code = Abnormal 02514-6) [facility] GLUCOSE(AGE >30DAYS)2021-12-03 02:59:00 Test Item Value Reference Range Interpretation Comments POCT Glu (age>30days) (test code = 414 mg/dL 70-110 A 3342) Lab Interpretation (test code = Abnormal 53078-1) [facility] [id number] 01:49:20 Test Item Value Reference Interpretation Comments Range TROPONIN I (test 0.003 ng/mL See_Comment [Automated code = 4381443077) message] The system which generated this result [...] biotin. Lab Interpretation Normal (test code = 07325-9) [facility]. METABOLIC PANEL (13625)2021-12-03 01:48:59 Test Item Value Reference Range Interpretation Comments NA (test code = 131 mmol/L 135-145 L 5326601353) K (test code = 4.9 mmol/L 3.5-5 3798629597) CL (test code = 97 mmol/L 98-108 L 8074627848) CO2 TOTAL (test code = 16 mmol/L 23-31 L 3051344730) AGAP (test code = 2-16 H 7252510323) BUN (test code = 8 mg/dL 7-23 1498609437) GLUCOSE (test code = 474 mg/dL 70-110 HH 7853106376) CREATININE (test code = 0.63 mg/dL 0.5-1.04 2849367651) TOTAL BILI (test code = 1.1 mg/dL 0.1-1.2 9039959183) CALCIUM (test code = 9.5 mg/dL 8.6-10.6 2869090375) T PROTEIN (test code = 7.6 g/dL 6.3-8.2 9920672039) ALBUMIN (test code = 4.2 g/dL 3.5-5 4587418136) ALK PHOS (test code = 100 U/L 34-122 4808442091) ALTv (test code = 20 U/L 5-35 1742-6) AST(SGOT) (test code = 26 U/L 13-40 2612514522) eGFR (test code = mL/min/1.73m2 6618748821) ANTOINE (test code = ANTOINE) Association of [...] tests). Lab Interpretation Abnormal (test code = 45862-4) [facility] 01:38:21 Test Item Value Reference Range Interpretation Comments MAGNESIUM (test code = 0761985271) 1.5 mg/dL 1.7-2.4 L Lab Interpretation (test code = Abnormal 19115-2) [facility] 01:38:01 Test Item Value Reference Range Interpretation Comments LIPASE (test code = 3592869217) 169 U/L 0-220 Lab Interpretation (test code = Normal 77658-2) [facility] WITH [id number] 01:26:23 Test Item Value Reference Range Interpretation Comments WBC (test code = See_Comment H [Automated 3514-2) message] The system which generated this result transmit snow reference range : 4.30 - 11.10 10*3/?L. The reference range was not used to interpret this result as normal/abnormal . RBC (test code = See_Comment [Automated 801-6) message] The system which generated this result [...] RDW-SD (test code = 39.4 fL 39-49.9 28981-8) RDW-CV (test code = 12.6 % 12-15.5 788-0) PLT (test code = See_Comment [Automated 777-3) message] The system which generated this result transmit snow reference range : 166 - 358 10*3/ ?L. The reference range was not u sed to interpret th is result as normal/abnormal . MPV (test code = 10.7 fL 9.5-12.9 88426-9) NRBC/100 WBC (test See_Comment [Automat ed code = 6077060634) message] The system which generated this result transmit snow reference range : 0.0 - 10.0 /100 WBCs. The reference range was not used to interpret this result as normal/abnormal . NRBC x10^3 (test code See_Comment [Auto mated = 6149115553) message] The system which generated this result transmit snow reference range : 10*3/?L. The reference range was not used to interpret this result as normal/abnormal . GRAN MAT (NEUT) % 71.2 % (test code = 770-8) IMM GRAN % (test code 0.40 % = 6674927889) LYMPH % (test code = 18.0 % 736-9) MONO % (test code = 7.7 % 5905-5) EOS % (test code = 2.1 % 713-8) BASO % (test code = 0.6 % 706-2) GRAN MAT x10^3(ANC) 11.44 10*3/uL 1.88-7.09 H (test code = 8487596299) IMM GRAN x10^3 (test 0.07 10*3/uL 0-0.06 H code = 5537062404) LYMPH x10^3 (test code 2.90 10*3/uL 1.32-3.29 = 731-0) MONO x10^3 (test code 1.24 10*3/uL 0.33-0.92 H = 742-7) EOS x10^3 (test code = 0.33 10*3/uL 0.03-0.39 711-2) BASO x10^3 (test code 0.09 10*3/uL 0.01-0.07 H = 704-7) Lab Interpretation Abnormal (test code = 13943-1) [facility] GLUCOSE (AUTOMATED)2021-12-03 01:03:21 Test Item Value Reference Range Interpretation Comments POCT GLU (test code = 0398024413) 471 mg/dL 70-110 HH Lab Interpretation (test code = Abnormal 53516-0) [facility] GLUCOSE(AGE >30DAYS)2021-12-03 01:03:00 Test Item Value Reference Range Interpretation Comments POCT Glu (age>30days) (test code = 471 mg/dL 70-110 A 3342) Lab Interpretation (test code = Abnormal 63899-0) [facility] [id number] 17:13:00 Test Item Value Reference Range Interpretation Comments POCT PREG (test code = 1605) negative On board controls acceptable with yes C Line (test code = 3574) POCT PREG LOT # (test code = 3575) [id number] POCT PREG TEST DATE (test 02/10/2023 code = 3576) Lab Interpretation (test code = Normal 07666-9) [facility] METABOLIC PANEL (NA, K, CL, CO2, GLUCOSE, BUN, CREATININE, CA)2021-10-17 00:39:32 Test Item Value Reference Range Interpretation Comments NA (test code = 133 mmol/L 135-145 L 9970191020) K (test code = 3.8 mmol/L 3.5-5 0112630254) CL (test code = 104 mmol/L 98-108 7197389254) CO2 TOTAL (test code = 18 mmol/L 23-31 L 0861128307) AGAP (test code = 2-16 5315746280) BUN (test code = 10 mg/dL 7-23 8344224934) GLUCOSE (test code = 231 mg/dL 70-110 H 4567247689) CREATININE (test code = 0.61 mg/dL 0.5-1.04 3228632115) CALCIUM (test code = 8.7 mg/dL 8.6-10.6 9140389342) eGFR (test code = mL/min/1.73m2 3708401732) ANTOINE (test code = ANTOINE) Association of [...] tests). Lab Interpretation Abnormal (test code = 86478-6) [facility]53241[facility] (ALB,T.PRO,BILI T,BU/BC,ALT,AST,ALK PHOS)2021-10-17 00:39:32 Test Item Value Reference Range Interpretation Comments TOTAL BILI (test code = 9283291366) 0.6 mg/dL 0.1-1.1 BILI UNCON (test code = 6414312287) 0.4 mg/dL 0.1-1.1 BILI CONJ (test code = 9567603861) 0.0 mg/dL 0-0.3 T PROTEIN (test code = 5160591769) 6.8 g/dL 6.3-8.2 ALBUMIN (test code = 6212254601) 4.3 g/dL 3.5-5 ALK PHOS (test code = 9574699403) 78 U/L 34-122 ALTv (test code = 1742-6) 22 U/L 5-35 AST(SGOT) (test code = 5661508208) 25 U/L 13-40 Lab Interpretation (test code = Normal 21614-9) [facility] 00:39:32 Test Item Value Reference Range Interpretation Comments LIPASE (test code = 1217521851) 97 U/L 0-220 Lab Interpretation (test code = Normal 01879-1) [facility] WITH [id number] 00:28:09 Test Item Value Reference Range Interpretation Comments WBC (test code = See_Comment [Automated 1990-2) message] The sy stem which generated this result transmitted reference range : 4.30 - 11.10 10*3/?L. The reference range was not used to interpret this result as normal/abnormal . RBC (test code = See_Comment [Automated 168-8) message] The sy stem which generated this [...] RDW-SD (test code = 39.2 fL 39-49.9 88630-9) RDW-CV (test code = 12.5 % 12-15.5 788-0) PLT (test code = See_Comment [Automated 707-3) message] The sy stem which generated this result transmitted reference range : 166 - 358 10*3/ ?L. The reference r shayla was not used to interpret this result as normal/abnormal . MPV (test code = 9.5 fL 9.5-12.9 35004-8) NRBC/100 WBC (test See_Comment [Automat ed code = 7040728301) message] The system which generated this result transmitted reference range : 0.0 - 10.0 /100 WBCs. The refer ence range was not u sed to interpret th is result as normal/abnormal . NRBC x10^3 (test code See_Comment [Auto mated = 4846329353) message] The s ystem which generated this result transmitted reference range : 10*3/?L. The reference range was not used to interpret this result as normal/abnormal . GRAN MAT (NEUT) % 56.9 % (test code = 770-8) IMM GRAN % (test code 0.40 % = 0358689086) LYMPH % (test code = 30.8 % 736-9) MONO % (test code = 7.5 % 5905-5) EOS % (test code = 4.0 % 713-8) BASO % (test code = 0.4 % 706-2) GRAN MAT x10^3(ANC) 5.49 10*3/uL 1.88-7.09 (test code = 9623755201) IMM GRAN x10^3 (test 0.04 10*3/uL 0-0.06 code = 3302139002) LYMPH x10^3 (test code 2.97 10*3/uL 1.32-3.29 = 731-0) MONO x10^3 (test code 0.72 10*3/uL 0.33-0.92 = 742-7) EOS x10^3 (test code = 0.39 10*3/uL 0.03-0.39 711-2) BASO x10^3 (test code 0.04 10*3/uL 0.01-0.07 = 704-7) Lab Interpretation Abnormal (test code = 18257-0) [facility] [id number] 00:17:00 Test Item Value Reference Range Interpretation Comments POCT PREG (test code = 1605) negative On board controls acceptable with present C Line (test code = 3574) POCT PREG LOT # (test code = 3575) [id number] POCT PREG TEST DATE (test 2023-01-10 code = 3576) Lab Interpretation (test code = Normal 15876-1) [facility]2021-10-13 17:43:45 Test Item Value Reference Range Interpretation Comments POCT GLU (test code = 6767127994) 281 mg/dL 70-110 H Lab Interpretation (test code = Abnormal 50478-4) [facility]BG+VCOOX+NA+K+GLU+CA2+2021-09-15 12:49:35 Test Item Value Reference Range Interpretation Comments PH (test code = 7.32-7.42 9386257526) PCO2 ETHAN (test code = See_Comment L [Auto mated message] 9506793814) The system [employer] generated this result transmit snow reference range : 41 - 51 mmHg. The reference range was not used to interpret this result as normal/abnormal . PO2 ETHAN (test code = See_Comment [Autom ated message] 0201269692) The system [employer] generated this result transmit snow reference range : 25 - 40 mmHg. The reference range was not used to interpret this result as normal/abnormal . HCO3 ETHAN (test code = See_Comment L [Auto mated message] 0627659787) The system [employer] generated this result transmit snow reference range : 24 - 28 mEq/L. The reference range was not used to interpret this result as normal/abnormal . AC VBE(BEAKER) (test mEq/L code = 2271665403) THB ETHAN (test code = 14.1 g/dL 12-16 3264150465) %O2HB ETHAN (test code = 71.1 % 52-63 H 7738816345) %COHB ETHAN (test code = 1.5 % 0-1.5 6091231636) %METHB ETHAN (test code = 0.3 % 0.4-1.5 L 9646743524) VOL%O2 ETHAN (test code = 14.1 % 6-12 H 0973026151) NA (test code = 135 mmol/L 135-145 8178052687) K+ (test code = 4.2 mmol/L 3.5-5 1081048940) AC CA IONZ (test code = 4.40 mg/dL 4.5-5.3 L 3193561546) GLUCOSE (test code = 271 mg/dL 70-110 H 0504523296) Lab Interpretation Abnormal (test code = 02347-6) [facility] GLUCOSE (AUTOMATED)2021-09-15 11:58:15 Test Item Value Reference Range Interpretation Comments POCT GLU (test code = 8424383972) 315 mg/dL 70-110 H Lab Interpretation (test code = Abnormal 33215-1) [facility] SARS-COV-2 ANTIGEN (BINAX NOW)2021-09-12 15:17:00 Test Item Value Reference Range Interpretation Comments POCT SARS-COV-2 ANTIGEN (test Not Detected Not Detected code = 5076) On board controls acceptable Yes with C Line (test code = 3574) Lab Interpretation (test code = Normal 70731-6) [facility]
[2022-01-14] MEDS ORDERED: MORPHINE 4 MG/ML SYR ONE ×2 (13:31→17:29)
[2022-01-14] MEDS ORDERED: NA CHLORIDE 0.9% 1,000 ML ONE (13:31)
[2022-01-14] MEDS ORDERED: METHYLPREDNISOLONE 125 MG INJ ONE (13:31)
[2022-01-14] MEDS ORDERED: ONDANSETRON 4 MG/2 ML VIAL ONE (13:31)
[2022-01-14 13:47] LABS: Urine Blood 1+ (Negative); Urine Glucose 3+ (Negative); Urine Protein 1+ (Negative); Urine Specific Gravity 1.025 (1.005-1.030)
[2022-01-14 13:54] LABS: Transitional Epithelial <5 /HPF (None Seen)
--- NOTE | 2022-01-14 14:04 | RAD REPORT ---
EXAM DESCRIPTION: CT - Stone Protocol - 01/14/2022 1:49 pm CLINICAL HISTORY: right flank pain COMPARISON: Stone Protocol dated 01/09/2022 TECHNIQUE: Axial 3 mm thick images were obtained without oral or IV contrast. The grxow-fo-onzi span s the entirety of the system including uppermost abdomen and lung bases. All CT scans are performed using dose optimization technique as appropriate and may include automated exposure control or mA/KV adjustment according to patient size. FINDINGS: No acute hydronephrosis present. Fullness of the left side pelvis and calices matches the January 09 comparison. No obstructing or nonobstructing calculi seen. No suspicious renal masses. Is odense masses and pyelonephritis are not excluded on a stone protocol CT scan. No significant adrenal finding. Urinary bladder is mostly contracted limiting assessment. No bladder calculi seen. Imaged portions of the liver, spleen and pancreas show no suspicious findings on non-contrast imaging . No gallbladder or biliary tree abnormality identified. Small accessory splenic nodule present. No acute stomach or small bowel finding. Moderate stool volume is seen throughout the colon. No acute colon process seen. There is no appendicitis. Tortuosity the sigmoid colon is present. Uterus and ov reagan show no suspicious findings. Bilateral ovarian cysts are likely present. The ovaries are diffic ult to fully assess given the adjacent isodense bowel loops. Cyst rupture or hemorrhage findings are not seen. No hernia, mass or bulky lymphadenopathy noted. No free air, free fluid or inflammatory stranding. No significant bony abnormality. IMPRESSION: No hydronephrosis, obstructing calculus or other acute finding. Isodense masses and pyelonephritis are not excluded on stone protocol technique. No appendicitis or acute GI finding. Bilateral ovarian cysts are present but not fully assessed on this noncontrast study. Ovarian cyst ru pture or hemorrhage not suspected.
[2022-01-14 14:39] LABS: Absolute Lymphocytes (CBC) 3.1 K/uL (0.7-4.9); Hematocrit 37.6 % (36.0-45.0); Lymphocytes % 28.1 % (15.3-44.8); MCV 87.5 fL (80-100); MPV 7.8 fL (7.6-11.3)
[2022-01-14 14:40] LABS: Platelet Estimate ADEQ; White Blood Cell Scan OK (OK)
[2022-01-14 14:41] LABS: Blood Morphology Comment NOT SEEN (NOT SEEN)
[2022-01-14] MEDS ORDERED: KETOROLAC 30 MG/ML INJ ONE (15:11)
[2022-01-14] MEDS ORDERED: dexAMETHasone 10 MG/ML VIAL ONE (15:11)
[2022-01-14 16:41] LABS: Potassium 4.9 mmol/L (3.5-5.1)
[2022-01-14 16:42] LABS: Bilirubin Total 0.6 mg/dL (0.2-1.0); Protein, Total 7.5 g/dL (6.4-8.2)
[2022-01-14 16:43] LABS: Albumin 3.4 g/dL (3.4-5.0)
--- NOTE | 2022-01-14 16:54 | ER ---
Nurse's Notes [facility] Name: Liliana Figueroa Age: 31 yrs Sex: Female : 1990 Arrival Date: 01/14/2022 Time: 12:48 Bed 25 Private MD: Diagnosis: Low back pain Presentation: 01/14 13:02 Chief complaint: Patient states: Pt reports right flank pain x2 1/2 weeks was seen at [address], diagnosed with UTI and given 1 dose of unknown antibiotic with no relief. Pt was seen in this ER Saturday and reports no UTI but continued pain. Pt returned to [facility] on and received Cefdinir. Reports she now has a yeast infection and a rash from the antibiotics. 13:05 Coronavirus screen: Vaccine status: Patient reports being unvaccinated. Client denies [facility] travel out of the [place] in the last 14 days. Ebola Screen: Patient negative for fever greater than or equal to 101.5 degrees Fahrenheit, and additional compatible Ebola Virus Disease symptoms Patient denies exposure to infectious person. Patient denies travel to an Ebola-affected area in the 21 days before illness onset. Onset: The symptoms/episode began/occurred 3 week(s) ago. Initial Sepsis Screen: Does the patient meet any 2 criteria? No. Patient's initial sepsis screen is negative. Does the patient have a suspected source of infection? No. Patient's initial sepsis screen is negative. Risk Assessment: Do you want to hurt yourself or someone else? Patient reports no desire to harm self or others. Onset of symptoms was December 24, 2021. 13:05 Method Of Arrival: Ambulatory [facility] 13:05 Acuity: MARY 3 3 Triage Assessment: 13:07 General: Appears in no apparent distress. Behavior is calm, cooperative. Pain: 3 Complains of pain in right low back Pain does not radiate. Pain currently is 10 out of 10 on a pain scale. 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 Last tetanus immunization: up to date. - Social history:: Smoking status: Patient denies any tobacco usage or history of. Patient uses street drugs, marijuana. Screenin:43 Abuse screen: Denies threats or abuse. Denies injuries from another. Nutritional hb screening: No deficits noted. Tuberculosis screening: No symptoms or risk factors identified. Fall Risk None identified. Assessment: 13:30 General: Appears in no apparent distress. Behavior is calm, cooperative. Neuro: Level hb of Consciousness is awake, alert, obeys commands, Oriented to person, place, time, situation. Cardiovascular: Patient's skin is warm and dry. Respiratory: Respiratory effort is even, unlabored, Respiratory pattern is regular, symmetrical. GI: No signs and/or symptoms were reported involving the gastrointestinal system. : No signs and/or symptoms were reported regarding the genitourinary system. EENT: No signs and/or symptoms were reported regarding the EENT system. Derm: Skin is pink, warm \T\ dry. Musculoskeletal: Reports back pain. 15:14 Reassessment: Patient appears in no apparent distress at this time. Patient and/or hb family updated on plan of care and expected duration. Pain level reassessed. Patient is alert, oriented x 3, equal unlabored respirations, skin warm/dry/pink. 17:42 Reassessment: Patient appears in no apparent distress at this time. Patient and/or hb family updated on plan of care and expected duration. Pain level reassessed. Patient is alert, oriented x 3, equal unlabored respirations, skin warm/dry/pink. Vital Signs: 13:05 BP 150 / 102; Pulse 112; Resp 20; Temp 99; Pulse Ox 99% ; Weight 86.18 kg; Height 5 ft. kb3 3 in. (160.02 cm); Pain 10/10; 15:00 BP 148 / 88; Pulse 89; Resp 16; Pulse Ox 99% ; hb 17:00 BP 132 / 82; Pulse 88; Resp 16; Pulse Ox 100% on R/A; Pain 9/10; hb 13:05 Body Mass Index 33.66 (86.18 kg, 160.02 cm) kb3 ED Course: 12:48 Patient arrived in ED. rg4 13:01 Divine Cortez FNP-C is [facility]. kb 13:01 Wild Centeno MD is Attending Physician. kb 13:07 Triage completed. kb3 13:07 Arm band placed on right wrist. kb3 13:11 Malou Darby, RN is Primary Nurse. hb 13:33 Inserted saline lock: 20 gauge in right antecubital area, using aseptic technique. hb Blood collected. 13:51 CT Stone Protocol In Process Unspecified. EDMS 14:43 Patient has correct armband on for positive identification. hb Administered Medications: 13:33 Drug: NS 0.9% 1000 ml Route: IV; Rate: 1 bolus; Site: right antecubital; hb 13:33 Drug: Zofran (Ondansetron) 4 mg Route: IVP; Site: right antecubital; hb 14:16 Follow up: Response: No adverse reaction hb 13:33 Drug: morphine 4 mg Route: IVP; Infused Over: 4 mins; Site: right antecubital; hb 14:15 Follow up: Response: No adverse reaction hb 13:33 Drug: SOLU-Medrol (methylPrednisoLONE) 125 mg Route: IVP; Site: right antecubital; hb 14:15 Follow up: Response: No adverse reaction hb 15:14 Drug: Ketorolac 15 mg Route: IVP; Site: right antecubital; hb 16:00 Follow up: Response: No adverse reaction hb 17:42 Drug: morphine 4 mg Route: IVP; Infused Over: 4 mins; Site: right antecubital; hb 17:42 Follow up: Response: Medication administered at discharge. hb Outcome: 16:53 Discharge ordered by MD. kb 17:43 Discharged to home ambulatory, with significant other. hb 17:43 Condition: stable 17:43 Discharge instructions given to patient, Instructed on discharge instructions, follow up and referral plans. medication usage, Demonstrated understanding of instructions, follow-up care, medications, Prescriptions given X 3. 17:43 Patient left the ED. hb Signatures: Dispatcher [employer] EDMS Divine Cortez FNP-C ACCOUNTANT HELPER-CkMalou Loo RN RN Shahla Seaman rg4 Jaimee Appiah RN RN kb3 Corrections: (The following items were deleted from the chart) 13:09 13:07 Allergies: No Known Allergies; kb3 kb3 13:11 13:07 Allergies: Cefdinir; kb3 kb3 15:14 15:14 BP 148 / 88; Pulse 89bpm; Resp 16bpm; Pulse Ox 99%; hb hb
--- NOTE | 2022-01-14 16:54 | EDPHYS ---
Physician Documentation [facility] Name: Liliana Figueroa Age: 31 yrs Sex: Female : 1990 Arrival Date: 01/14/2022 Time: 12:48 Bed 25 Private MD: FIFI Physician [facility] HPI: 01/14 13:22 This 31 yrs old Female presents to ER via Ambulatory with complaints of Allergic kb Reaction, Low Back Pain. 13:22 The patient complains of pain in the right flank. The pain does not radiate. Onset: The kb symptoms/episode began/occurred 6 day(s) ago. Modifying factors: The symptoms are alleviated by nothing. the symptoms are aggravated by palpation/percussion. Associated signs and symptoms: Pertinent positives: nausea. Severity of pain: At its worst the pain was moderate in the emergency department the pain is unchanged. The patient has not experienced similar symptoms in the past. The patient has not recently seen a physician. Pt reports continued right flank pain since previous visit. States she followed up with the [facility] and was prescribed omnicef for a UTI yesterday. States she woke up with a rash to right hand this morning. . 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 Last tetanus immunization: up to date. - Social history:: Smoking status: Patient denies any tobacco usage or history of. Patient uses street drugs, marijuana. ROS: 13:10 Constitutional: Negative for fever, chills, and weight loss. kb 13:10 Back: Positive for flank pain, on the right. 13:10 Skin: Positive for rash, of the right hand. 13:10 All other systems are negative. Exam: 13:10 Constitutional: This is a well developed, well nourished patient who is awake, alert, kb and in no acute distress. Head/Face: Normocephalic, atraumatic. ENT: Moist Mucous membranes Cardiovascular: Regular rate and rhythm with a normal S1 and S2. No gallops, murmurs, or rubs. No pulse deficits. Respiratory: Respirations even and unlabored. No increased work of breathing. Talking in full sentences Abdomen/GI: Soft, non-tender. No distention MS/ Extremity: Pulses equal, no cyanosis. Neurovascular intact. Full, normal range of motion. Neuro: Awake and alert, GCS 15, oriented to person, place, time, and situation. Moves all extremities. Normal gait. Psych: Awake, alert, with orientation to person, place and time. Behavior, mood, and affect are within normal limits. 13:10 Back: pain, that is moderate, of the lumbar area, CVA tenderness, that is moderate, is noted on the right. 13:25 Skin: rash a mild rash is noted, consistent with contact dermatitis, on the right hand. Vital Signs: 13:05 BP 150 / 102; Pulse 112; Resp 20; Temp 99; Pulse Ox 99% ; Weight 86.18 kg; Height 5 ft. kb3 3 in. (160.02 cm); Pain 10/10; 15:00 BP 148 / 88; Pulse 89; Resp 16; Pulse Ox 99% ; hb 17:00 BP 132 / 82; Pulse 88; Resp 16; Pulse Ox 100% on R/A; Pain 9/10; hb 13:05 Body Mass Index 33.66 (86.18 kg, 160.02 cm) kb3 MDM: 13:09 Patient medically screened. 13:12 Data reviewed: vital signs, nurses notes. Data interpreted: Pulse oximetry: on room air kb is 99 %. Interpretation: normal. 16:49 Counseling: I had a detailed discussion with the patient and/or guardian regarding: the kb historical points, exam findings, and any diagnostic results supporting the discharge/admit diagnosis, lab results, radiology results, the need for outpatient follow up, a family practitioner, to return to the emergency department if symptoms worsen or persist or if there are any questions or concerns that arise at home. 16:49 ED course: Pt has no spinal tenderness. Most pain is just to the right of lumbar spine. kb Pt has had no fever, WBC decreased from previous visit. Discussed all results with pt. Pt will follow up with PCP for further testing. Pt has been taking percocet for pain at home. 01/14 13:12 Order name: CBC with Diff; Complete Time: 14:49 kb 01/14 13:12 Order name: CMP; Complete Time: 16:47 kb 01/14 13:12 Order name: Lipase; Complete Time: 16:47 kb 01/14 13:12 Order name: Urine Microscopic Only; Complete Time: 14:00 kb 01/14 13:47 Order name: Urine Dipstick-Ancillary; Complete Time: 13:54 EDMS 01/14 14:41 Order name: CBC Smear Scan; Complete Time: 14:49 EDMS 01/14 13:12 Order name: IV Saline Lock; Complete Time: 13:57 kb 01/14 13:12 Order name: CT Stone Protocol; Complete Time: 14:06 kb 01/14 13:12 Order name: Labs collected and sent; Complete Time: 13:57 kb 01/14 13:12 Order name: Urine Dipstick-Ancillary (obtain specimen); Complete Time: 13:57 kb 01/14 13:12 Order name: Urine Test (obtain specimen); Complete Time: 13:57 kb 01/14 14:01 Order name: Labs - recollect needed: recollect chemisties lipemic protocol/ inside lab eb paged; Complete Time: 14:16 01/14 15:57 Order name: Labs - recollect needed; Complete Time: 15:57 hb Administered Medications: 13:33 Drug: NS 0.9% 1000 ml Route: IV; Rate: 1 bolus; Site: right antecubital; hb 13:33 Drug: Zofran (Ondansetron) 4 mg Route: IVP; Site: right antecubital; hb 14:16 Follow up: Response: No adverse reaction hb 13:33 Drug: morphine 4 mg Route: IVP; Infused Over: 4 mins; Site: right antecubital; hb 14:15 Follow up: Response: No adverse reaction hb 13:33 Drug: SOLU-Medrol (methylPrednisoLONE) 125 mg Route: IVP; Site: right antecubital; hb 14:15 Follow up: Response: No adverse reaction hb 15:14 Drug: Ketorolac 15 mg Route: IVP; Site: right antecubital; hb 16:00 Follow up: Response: No adverse reaction hb 17:42 Drug: morphine 4 mg Route: IVP; Infused Over: 4 mins; Site: right antecubital; hb 17:42 Follow up: Response: Medication administered at discharge. Disposition Summary: 01/14/22 16:53 Discharge Ordered Location: Home kb Condition: Stable kb Diagnosis - Low back pain kb Followup: kb - With: Emergency Department - When: As needed - Reason: Worsening of condition Followup: kb - With: Private Physician - When: 2 - 3 days - Reason: Recheck today's complaints, Continuance of care, Re-evaluation by your physician Discharge Instructions: - Discharge Summary Sheet kb - Musculoskeletal Pain kb - Flank Pain, Adult, [id number] kb Forms: - Medication Reconciliation Form kb - Thank You Letter kb - Antibiotic Education kb - Prescription Opioid Use kb Prescriptions: - Prednisone 20 mg Oral Tablet - take 1 tablet by ORAL route once daily for 5 days; 5 tablet; Refills: 0, kb Product Selection Permitted - Cyclobenzaprine 10 mg Oral Tablet - take 1 tablet by ORAL route every 8 hours As needed; 15 tablet; Refills: 0, kb Product Selection Permitted - Diclofenac Sodium 75 mg Oral tablet,delayed release (DR/EC) - take 1 tablet by ORAL route 2 times per day As needed; 30 tablet; Refills: 0, kb Product Selection Permitted Signatures: Dispatcher [employer] EDNE Divine Cortez, ADRIANC [employer] MARKETING COORDINATOR-Toñob Malou Darby RN RN Carolina Junior Kelly, RN RN kb3 Corrections: (The following items were deleted from the chart) 13:09 13:07 Allergies: No Known Allergies; kb3 kb3 13:11 13:07 Allergies: Cefdinir; kb3 kb3 13:26 13:10 Constitutional: This is a well developed, well nourished patient who is awake, kb alert, and in no acute distress. Head/Face: Normocephalic, atraumatic. ENT: Moist Mucous membranes Cardiovascular: Regular rate and rhythm with a normal S1 and S2. No gallops, murmurs, or rubs. No pulse deficits. Respiratory: Respirations even and unlabored. No increased work of breathing. Talking in full sentences Abdomen/GI: Soft, non-tender. No distention Skin: Warm, dry with normal turgor. Normal color. MS/ Extremity: Pulses equal, no cyanosis. Neurovascular intact. Full, normal range of motion. Neuro: Awake and alert, GCS 15, oriented to person, place, time, and situation. Moves all extremities. Normal gait. Psych: Awake, alert, with orientation to person, place and time. Behavior, mood, and affect are within normal limits. kb
[2022-01-14 17:58] VITALS: TEMP 99
[2022-01-14 18:09] VITALS: BP 132/82; O2SAT 100
== END 2022-01-14 17:43 | disposition home or self-care (01) ==
LOC: ER 12:45
DX: M54.50 Low back pain, unspecified (principal)
CPT/HCPCS: 36415; 74176; 76377; 80053; 81003; 81015; 83690; 85025; 96374; 96375; 99284; J1100; J2405; J2930; J7030